=== PATIENT | male | born 1960 | race Hispanic/Latino ===

== ENCOUNTER 2020-06-07 10:47 | Inpatient (IN) | payer OTHER ==
[2020-06-07] MEDS ORDERED: IPRATROPIUM 0.02% NEBU 2.5 ML IH ONE (11:05)
[2020-06-07] MEDS ORDERED: MAGNESIUM SULFATE 2 GM/50 ML BAG IV ONE (11:05)
[2020-06-07] MEDS ORDERED: ALBUTEROL 2.5 MG/3 ML NEBU IH ONE (11:05)
--- NOTE | 2020-06-07 11:42 | XRay Report ---
CHEST 1 VIEW 06/07/2020 10:29 AM INDICATION / CLINICAL INFORMATION: sob. COMPARISON: None available. FINDINGS: SUPPORT DEVICES: None. HEART / MEDIASTINUM: No significant abnormality. LUNGS / PLEURA: Streaky airspace disease right lung and left lower lung field characteristic for pneu monia. No pneumothorax. ADDITIONAL FINDINGS: Multiple old healed right rib fracture deformities. IMPRESSION: 1. Bilateral pneumonia Signer Name: Luis Enrique Rizzo MD Signed: 06/07/2020 11:38 AM Workstation Name: [id number]
[2020-06-07 11:50] LABS: Hematocrit 41.6 % (35.5-45.6); Hemoglobin 14.1 gm/dl (11.8-15.2); Mean Corpuscular HGB Conc 34 % (32-34); Mean Corpuscular Volume 89 fl (84-94); Platelet Count 202 K/mm3 (140-440); Red Blood Count 4.65 M/mm3 (3.65-5.03); Red Cell Distribution Width 15.2 % (13.2-15.2)
--- NOTE | 2020-06-07 12:05 | Emergency Department Report ---
ED Shortness of Breath HPI - General Chief Complaint: Dyspnea/Respdistress Stated Complaint: HALIMA Time Seen by Provider: 06/07/20 11:03 Source: patient, EMS Mode of arrival: Stretcher Limitations: No Limitations - History of Present Illness Initial Comments: 59-year-old male with a past medical history of lung cancer, COPD on 4 L of home oxygen, diabetes, hypertension, and leg edema presents to the hospital with complaints of shortness breath x1 day. EMS states patient saturation was 91% on 4 L upon their arrival to the house. Patient has significant wheezing. CPAP was initiated route with albuterol 5 mg, Solu-Medrol 125 mg, and Atrovent 0.5 mg. Patient denies a cough and shortness with x1 day. No fevers reported. Denies previous intubations. Patient presents to the hospital with continued dyspnea and wheezing and was transferred to [facility] upon arrival. - Related Data Previous Rx's Medication Instructions Recorded Last Taken Type Clindamycin [Clindamycin CAP] 300 mg PO Q8H 10 Days cap 02/04/15 Unknown Rx Metformin HCl [Glucophage] 1,000 mg PO BID #180 tablet 02/04/15 Unknown Rx [place]-3 Fatty Acids/Fish Oil [Fish 1 each PO TID #90 capsule 02/04/15 Unknown Rx Oil 1,000 mg Softgel] Pravastatin [Pravachol] 40 mg PO QHS #90 tablet 02/04/15 Unknown Rx Sulfamethoxazole/Trimethoprim 1 each PO Q12HR 10 Days tablet 02/04/15 Unknown Rx [Bactrim DS TAB] HYDROcodone/APAP 5-325 [[place] 1 each PO Q6HR PRN #24 tablet 10/22/16 Unknown Rx 5/325] Ibuprofen [Motrin 800 MG tab] 800 mg PO Q8HR PRN #40 tablet 10/22/16 Unknown Rx Allergies Allergy/AdvReac Type Severity Reaction Status Date / Time No Known Allergies Allergy Verified 01/29/15 21:43 ED Review of Systems ROS: Stated complaint: HALIMA Other details as noted in HPI Comment: All other systems reviewed and negative ED Past Medical Hx - Past Medical History Hx Hypertension: Yes Hx Congestive Heart Failure: No Hx Diabetes: Yes Hx of Cancer: Yes (Lung CA) Hx Asthma: No Hx COPD: Yes (4L) Additional medical history: no primary care - Surgical History Past Surgical History?: No - Social History Smoking Status: Current Every Day Smoker Substance Use Type: None - Medications Home Medications: Home Medications Medication Instructions Recorded Confirmed Last Taken Type Clindamycin [Clindamycin CAP] 300 mg PO Q8H 10 Days cap 02/04/15 Unknown Rx Metformin HCl [Glucophage] 1,000 mg PO BID #180 tablet 02/04/15 Unknown Rx [place]-3 Fatty Acids/Fish Oil [Fish 1 each PO TID #90 capsule 02/04/15 Unknown Rx Oil 1,000 mg Softgel] Pravastatin [Pravachol] 40 mg PO QHS #90 tablet 02/04/15 Unknown Rx Sulfamethoxazole/Trimethoprim 1 each PO Q12HR 10 Days tablet 02/04/15 Unknown Rx [Bactrim DS TAB] HYDROcodone/APAP 5-325 [[place] 1 each PO Q6HR PRN #24 tablet 10/22/16 Unknown Rx 5/325] Ibuprofen [Motrin 800 MG tab] 800 mg PO Q8HR PRN #40 tablet 10/22/16 Unknown Rx ED Physical Exam - General Limitations: No Limitations - Other Other exam information: General: Moderate respiratory distress Head: Atraumatic Eyes: normal appearance ENT: Moist mucous membranes Neck: Normal appearance, no midline tenderness Chest: Tachypnea, excessive muscle use, bilateral wheezing fair air move CV: Tachycardic regular rhythm Abdomen: Soft, normal bowel sounds, nontender, nondistended, no rebound or guarding Back: Normal inspection Extremity: Bilateral lower extremity edema with chronic leg wounds/skin change Neuro: Alert O x 3, no facial asymmetry, speech clear, no gross motor sensory deficit Psych: Appropriate behavior Skin: Chronic skin changes noted to bilateral lower extremity sounds ED Course Vital Signs 06/07/20 06/07/20 06/07/20 10:59 11:08 11:14 Temperature 97.8 F Pulse Rate 124 H 120 H Pulse Rate [ Bilateral Throughout] Respiratory 34 H 26 H Rate Respiratory Rate [Bilateral Throughout] Blood Pressure 140/78 O2 Sat by Pulse 99 100 Oximetry 06/07/20 06/07/20 06/07/20 11:16 11:47 13:08 Temperature Pulse Rate 118 H Pulse Rate [ 110 H Bilateral Throughout] Respiratory 31 H Rate Respiratory 24 Rate [Bilateral Throughout] Blood Pressure 115/64 O2 Sat by Pulse 99 100 Oximetry ED Medical Decision Making - Lab Data Result diagrams: 06/07/20 11:15 06/07/20 12:40 Lab Results 06/07/20 06/07/20 06/07/20 Range/Units 11:15 11:15 11:15 WBC 10.8 (4.5-11.0) K/mm3 RBC 4.65 (3.65-5.03) M/mm3 Hgb 14.1 (11.8-15.2) gm/dl Hct 41.6 (35.5-45.6) % MCV 89 (84-94) fl MCH 30 (28-32) pg MCHC 34 (32-34) % RDW 15.2 (13.2-15.2) % Plt Count 202 (140-440) K/mm3 Add Manual Diff Complete Total Counted 100 Seg Neutrophils % [employer] Programmer Seg Neuts % (Manual) 97.0 H (40.0-70.0) % Band Neutrophils % 0 % Lymphocytes % (Manual) 2.0 L (13.4-35.0) % Reactive Lymphs % (Man) 0 % Monocytes % (Manual) 0 (0.0-7.3) % Eosinophils % (Manual) 0 (0.0-4.3) % Basophils % (Manual) 0 (0.0-1.8) % Metamyelocytes % 1.0 % Myelocytes % 0 % Promyelocytes % 0 % Blast Cells % 0 % Nucleated RBC % Not Reportable Seg Neutrophils # Man 10.5 H (1.8-7.7) K/mm3 Band Neutrophils # 0.0 K/mm3 Lymphocytes # (Manual) 0.2 L (1.2-5.4) K/mm3 Abs React Lymphs (Man) 0.0 K/mm3 Monocytes # (Manual) 0.0 (0.0-0.8) K/mm3 Eosinophils # (Manual) 0.0 (0.0-0.4) K/mm3 Basophils # (Manual) 0.0 (0.0-0.1) K/mm3 Metamyelocytes # 0.1 K/mm3 Myelocytes # 0.0 K/mm3 Promyelocytes # 0.0 K/mm3 Blast Cells # 0.0 K/mm3 WBC Morphology Not Reportable Hypersegmented Neuts Not Reportable Hyposegmented Neuts Not Reportable Hypogranular Neuts Not Reportable Smudge Cells Not Reportable Toxic Granulation Not Reportable Toxic Vacuolation Not Reportable Dohle Bodies Not Reportable Pelger-Huet Anomaly Not Reportable Cristy Rods Not Reportable Platelet Estimate Consistent w auto Clumped Platelets Not Reportable Plt Clumps, EDTA Not Reportable Large Platelets Not Reportable Giant Platelets Not Reportable Platelet Satelliting Not Reportable Plt Morphology Comment Not Reportable RBC Morphology Normal Dimorphic RBCs Not Reportable Polychromasia Not Reportable Hypochromasia Not Reportable Poikilocytosis Not Reportable Anisocytosis Not Reportable Microcytosis Not Reportable Macrocytosis Not Reportable Spherocytes Not Reportable Pappenheimer Bodies Not Reportable Sickle Cells Not Reportable Target Cells Not Reportable Tear Drop Cells Not Reportable Ovalocytes Not Reportable Helmet Cells Not Reportable [place] Bodies Not Reportable Wilson Rings Not Reportable [place] Cells Not Reportable Bite Cells Not Reportable Crenated Cell Not Reportable Elliptocytes Not Reportable Acanthocytes (Spur) Not Reportable Rouleaux Not Reportable Hemoglobin C Crystals Not Reportable Schistocytes Not Reportable Malaria parasites Not Reportable Lizandro Bodies Not Reportable Hem Pathologist Commnt No PT 13.4 (12.2-14.9) Sec. INR 1.00 (0.87-1.13) D-Dimer (0-234) ng/mlDDU ABG pH (7.320-7.450) POC ABG pCO2 (32.0-48.0) mmHg POC ABG pO2 (83-108) mmHg POC ABG HCO3 POC ABG Base Excess ABG Hemoglobin (12.0-17.5) ABG Sodium (136.0-145.0) mmol/L ABG Potassium (3.40-4.50) mmol/L ABG Chloride (98-107) mmol/L ABG Glucose (65-95) mg/dL FiO2 Sodium 137 (137-145) mmol/L Potassium 4.2 (3.6-5.0) mmol/L Chloride 100.2 (98-107) mmol/L Carbon Dioxide 27 (22-30) mmol/L Anion Gap 14 mmol/L BUN 17 (9-20) mg/dL Creatinine 0.4 L (0.8-1.3) mg/dL Estimated GFR > 60 ml/min BUN/Creatinine Ratio 43 % Glucose 160 H (75-100) mg/dL Calcium 9.5 (8.4-10.2) mg/dL Ferritin (30.0-300.0) ng/mL Total Bilirubin 0.50 (0.1-1.2) mg/dL AST 14 (5-40) units/L ALT 50 (7-56) units/L Alkaline Phosphatase 86 (35-129) units/L Lactate Dehydrogenase (91-180) units/L Troponin T < 0.010 (0.00-0.029) ng/mL C-Reactive Protein (0.00-1.30) mg/dL NT-Pro-B Natriuret Pep 296.7 (0-900) pg/mL Total Protein 6.1 L (6.3-8.2) g/dL Albumin 3.0 L (3.9-5) g/dL Albumin/Globulin Ratio 1.0 % Procalcitonin (<0.15) ng/mL Arterial Blood Glucose (65-95) mg/dL Arterial Blood Ionized Calcium (4.6-5.3) mg/dL 06/07/20 06/07/20 06/07/20 Range/Units 11:15 11:35 12:40 WBC (4.5-11.0) K/mm3 RBC (3.65-5.03) M/mm3 Hgb (11.8-15.2) gm/dl Hct (35.5-45.6) % MCV (84-94) fl MCH (28-32) pg MCHC (32-34) % RDW (13.2-15.2) % Plt Count (140-440) K/mm3 Add Manual Diff Total Counted Seg Neutrophils % Seg Neuts % (Manual) (40.0-70.0) % Band Neutrophils % % Lymphocytes % (Manual) (13.4-35.0) % Reactive Lymphs % (Man) % Monocytes % (Manual) (0.0-7.3) % Eosinophils % (Manual) (0.0-4.3) % Basophils % (Manual) (0.0-1.8) % Metamyelocytes % % Myelocytes % % Promyelocytes % % Blast Cells % % Nucleated RBC % Seg Neutrophils # Man (1.8-7.7) K/mm3 Band Neutrophils # K/mm3 Lymphocytes # (Manual) (1.2-5.4) K/mm3 Abs React Lymphs (Man) K/mm3 Monocytes # (Manual) (0.0-0.8) K/mm3 Eosinophils # (Manual) (0.0-0.4) K/mm3 Basophils # (Manual) (0.0-0.1) K/mm3 Metamyelocytes # K/mm3 Myelocytes # K/mm3 Promyelocytes # K/mm3 Blast Cells # K/mm3 WBC Morphology TNR Hypersegmented Neuts Hyposegmented Neuts Hypogranular Neuts Smudge Cells Toxic Granulation Toxic Vacuolation Dohle Bodies Pelger-Huet Anomaly Cristy Rods Platelet Estimate Clumped Platelets Plt Clumps, EDTA Large Platelets Giant Platelets Platelet Satelliting Plt Morphology Comment RBC Morphology Dimorphic RBCs Polychromasia Hypochromasia Poikilocytosis Anisocytosis Microcytosis Macrocytosis Spherocytes Pappenheimer Bodies Sickle Cells Target Cells Tear Drop Cells Ovalocytes Helmet Cells [place] Bodies Wilson Rings Layo Cells Bite Cells Crenated Cell Elliptocytes Acanthocytes (Spur) Rouleaux Hemoglobin C Crystals Schistocytes Malaria parasites Lizandro Bodies Hem Pathologist Commnt PT (12.2-14.9) Sec. INR (0.87-1.13) D-Dimer 149.46 (0-234) ng/mlDDU ABG pH 7.395 (7.320-7.450) POC ABG pCO2 46.8 (32.0-48.0) mmHg POC ABG pO2 220.9 H (83-108) mmHg POC ABG HCO3 28.0 POC ABG Base Excess 2.5 ABG Hemoglobin 14.2 (12.0-17.5) ABG Sodium 136.6 (136.0-145.0) mmol/L ABG Potassium 4.0 (3.40-4.50) mmol/L ABG Chloride 100.0 (98-107) mmol/L ABG Glucose 179 H (65-95) mg/dL FiO2 30.0 Sodium (137-145) mmol/L Potassium (3.6-5.0) mmol/L Chloride (98-107) mmol/L Carbon Dioxide (22-30) mmol/L Anion Gap mmol/L BUN (9-20) mg/dL Creatinine (0.8-1.3) mg/dL Estimated GFR ml/min BUN/Creatinine Ratio % Glucose (75-100) mg/dL Calcium (8.4-10.2) mg/dL Ferritin (30.0-300.0) ng/mL Total Bilirubin (0.1-1.2) mg/dL AST (5-40) units/L ALT (7-56) units/L Alkaline Phosphatase (35-129) units/L Lactate Dehydrogenase (91-180) units/L Troponin T (0.00-0.029) ng/mL C-Reactive Protein (0.00-1.30) mg/dL NT-Pro-B Natriuret Pep (0-900) pg/mL Total Protein (6.3-8.2) g/dL Albumin (3.9-5) g/dL Albumin/Globulin Ratio % Procalcitonin (<0.15) ng/mL Arterial Blood Glucose 179 H (65-95) mg/dL Arterial Blood Ionized Calcium 4.9 (4.6-5.3) mg/dL 06/07/20 06/07/20 06/07/20 Range/Units 12:40 12:40 12:40 WBC (4.5-11.0) K/mm3 RBC (3.65-5.03) M/mm3 Hgb (11.8-15.2) gm/dl Hct (35.5-45.6) % MCV (84-94) fl MCH (28-32) pg MCHC (32-34) % RDW (13.2-15.2) % Plt Count (140-440) K/mm3 Add Manual Diff Total Counted Seg Neutrophils % Seg Neuts % (Manual) (40.0-70.0) % Band Neutrophils % % Lymphocytes % (Manual) (13.4-35.0) % Reactive Lymphs % (Man) % Monocytes % (Manual) (0.0-7.3) % Eosinophils % (Manual) (0.0-4.3) % Basophils % (Manual) (0.0-1.8) % Metamyelocytes % % Myelocytes % % Promyelocytes % % Blast Cells % % Nucleated RBC % Seg Neutrophils # Man (1.8-7.7) K/mm3 Band Neutrophils # K/mm3 Lymphocytes # (Manual) (1.2-5.4) K/mm3 Abs React Lymphs (Man) K/mm3 Monocytes # (Manual) (0.0-0.8) K/mm3 Eosinophils # (Manual) (0.0-0.4) K/mm3 Basophils # (Manual) (0.0-0.1) K/mm3 Metamyelocytes # K/mm3 Myelocytes # K/mm3 Promyelocytes # K/mm3 Blast Cells # K/mm3 WBC Morphology Hypersegmented Neuts Hyposegmented Neuts Hypogranular Neuts Smudge Cells Toxic Granulation Toxic Vacuolation Dohle Bodies Pelger-Huet Anomaly Cristy Rods Platelet Estimate Clumped Platelets Plt Clumps, EDTA Large Platelets Giant Platelets Platelet Satelliting Plt Morphology Comment RBC Morphology Dimorphic RBCs Polychromasia Hypochromasia Poikilocytosis Anisocytosis Microcytosis Macrocytosis Spherocytes Pappenheimer Bodies Sickle Cells Target Cells Tear Drop Cells Ovalocytes Helmet Cells [place] Bodies Wilson Rings Layo Cells Bite Cells Crenated Cell Elliptocytes Acanthocytes (Spur) Rouleaux Hemoglobin C Crystals Schistocytes Malaria parasites Lizandro Bodies Hem Pathologist Commnt PT (12.2-14.9) Sec. INR (0.87-1.13) D-Dimer (0-234) ng/mlDDU ABG pH (7.320-7.450) POC ABG pCO2 (32.0-48.0) mmHg POC ABG pO2 (83-108) mmHg POC ABG HCO3 POC ABG Base Excess ABG Hemoglobin (12.0-17.5) ABG Sodium (136.0-145.0) mmol/L ABG Potassium (3.40-4.50) mmol/L ABG Chloride (98-107) mmol/L ABG Glucose (65-95) mg/dL FiO2 Sodium (137-145) mmol/L Potassium (3.6-5.0) mmol/L Chloride (98-107) mmol/L Carbon Dioxide (22-30) mmol/L Anion Gap mmol/L BUN (9-20) mg/dL Creatinine (0.8-1.3) mg/dL Estimated GFR ml/min BUN/Creatinine Ratio % Glucose 202 H (75-100) mg/dL Calcium (8.4-10.2) mg/dL Ferritin 1675.0 H (30.0-300.0) ng/mL Total Bilirubin (0.1-1.2) mg/dL AST (5-40) units/L ALT (7-56) units/L Alkaline Phosphatase (35-129) units/L Lactate Dehydrogenase 300 H (91-180) units/L Troponin T (0.00-0.029) ng/mL C-Reactive Protein 5.60 H (0.00-1.30) mg/dL NT-Pro-B Natriuret Pep (0-900) pg/mL Total Protein (6.3-8.2) g/dL Albumin (3.9-5) g/dL Albumin/Globulin Ratio % Procalcitonin 0.40 (<0.15) ng/mL Arterial Blood Glucose (65-95) mg/dL Arterial Blood Ionized Calcium (4.6-5.3) mg/dL - EKG Data -: EKG Interpreted by Me EKG shows normal: sinus rhythm, ST-T waves (No STEMI, right bundle branch block) Rate: tachycardia (118) - Radiology Data Radiology results: report reviewed CHEST 1 VIEW 06/07/2020 10:29 AM INDICATION / CLINICAL INFORMATION: sob. COMPARISON: None available. FINDINGS: SUPPORT DEVICES: None. HEART / MEDIASTINUM: No significant abnormality. LUNGS / PLEURA: Streaky airspace disease right lung and left lower lung field characteristic for pneumonia. No pneumothorax. ADDITIONAL FINDINGS: Multiple old healed right rib fracture deformities. IMPRESSION: 1. Bilateral pneumonia - Medical Decision Making Patient presents to the hospital shortness breath x1 day and COPD extubation requiring BiPAP support. Patient treated in the ED with addition of bronchodilators and IV magnesium. Solu-Medrol provided in route to the [facility]. X-ray reveals bilateral pneumonia. Patient treated with Rocephin and azithromycin for community-acquired pneumonia, placed in respiratory isolation and COVID order set and blood cultures ordered. Dexamethasone 6 mg IV given. Initial ABG does not reveal significant CO2 retention and O2 sat was titrated down by respiratory therapist. ID consult ordered as well. ddimer negative Critical Care Time: Yes Critical care time in (mins) excluding proc time.: 35 Critical care attestation.: If time is entered above; I have spent that time in minutes in the direct care of this critically ill patient, excluding procedure time. ED Disposition Clinical Impression: Bilateral pneumonia, History of lung cancer, COPD exacerbation, On home oxygen therapy Disposition: OP ADMIT IP TO THIS HOSP Is pt being admited?: Yes Condition: Stable Time of Disposition: 12:16
[2020-06-07 12:18] LABS: Alanine Aminotransferase 50 units/L (7-56); BUN/Creatinine Ratio 43; Blood Urea Nitrogen 17 mg/dL (9-20); Calcium 9.5 mg/dL (8.4-10.2); Hemolysis Index 11
[2020-06-07] MEDS ORDERED: dexAMETHasone 4 MG/ML VIAL IV ONE (12:29)
[2020-06-07 12:40] LABS: Basophils % (Manual) 0 % (0.0-1.8); Eosinophils % (Manual) 0 % (0.0-4.3); Monocytes % (Manual) 0 % (0.0-7.3); Total Cells Counted 100
--- NOTE | 2020-06-07 12:40 | History and Physical Report ---
History of Present Illness Chief complaint: I am having a hard time breathing History of present illness: 59 YO Male with Lung Cancer, Chronic Respiratory Failure on 4L Home Oxygen via [place], DM, HTN, Obesity,HLD, Nicotine Dependence presents to ED for evaluation. Patient is short of breath and is currently on noninvasive positive pressure ventilation at the time of my evaluation and is unable to give detailed history due to shortness of breath. Patient uses head-nodding to her knowledge symptoms. Patient reports that he had experienced shortness of breath over the past 1 day with persistent symptoms over the same timeframe. EMS notified and upon arrival the patient was found to be in distress and subsequently transported to [facility] for further care and evaluation of the aforementioned symptoms. Patient seen and evaluated in the emergency department. Lab and imaging studies reviewed. Chest x-ray reveals evidence of bilateral pneumonia. Patient found to have a pulse oximetry of 86% on room air which is consistent with acute hypoxemic respiratory failure. Patient subsequently placed on noninvasive positive pressure ventilation with mild improvement in symptoms. Patient initiated on coronavirus protocol in the emergency department prior to my evaluation. Patient admitted to [facility] due to increased risk of pulmonary decompensation. No reports of fever, chills, chest pain, productive cough, recent ill contacts, or known exposure to COVID-19. All medication listed at time of admission has been reconciled. Patient is sitting up in bed, using accessory muscles to breathe, tripoding. Patient is able to protect his airway at this time. Past History Past Medical History: cancer, diabetes, hypertension, hyperlipidemia Past Surgical History: No surgical history, Other (Reviewed) Social history: single, smoking Medications and Allergies Allergies Allergy/AdvReac Type Severity Reaction Status Date / Time No Known Allergies Allergy Verified 01/29/15 21:43 Home Medications Medication Instructions Recorded Confirmed Last Taken Type Clindamycin [Clindamycin CAP] 300 mg PO Q8H 10 Days cap 02/04/15 Unknown Rx Metformin HCl [Glucophage] 1,000 mg PO BID #180 tablet 02/04/15 Unknown Rx [place]-3 Fatty Acids/Fish Oil [Fish 1 each PO TID #90 capsule 02/04/15 Unknown Rx Oil 1,000 mg Softgel] Pravastatin [Pravachol] 40 mg PO QHS #90 tablet 02/04/15 Unknown Rx Sulfamethoxazole/Trimethoprim 1 each PO Q12HR 10 Days tablet 06/03/15 Unknown Rx [Bactrim DS TAB] HYDROcodone/APAP 5-325 [[place] 1 each PO Q6HR PRN #24 tablet 10/22/16 Unknown Rx 5/325] Ibuprofen [Motrin 800 MG tab] 800 mg PO Q8HR PRN #40 tablet 10/22/16 Unknown Rx Active Meds: Active Medications Ceftriaxone Sodium (Rocephin/Ns 2 Gm/100 Ml) 2 gm in 100 mls @ 200 mls/hr IV Q24HR LARRY; Protocol Azithromycin 500 mg/ Sodium (Chloride) 250 mls @ 250 mls/hr IV Q24HR LARRY; Protocol Review of Systems Constitutional: no weight loss, no weight gain, no fever, no chills Ears, nose, mouth and throat: no ear pain, no ear discharge, no tinnitis, no decreased hearing, no nose pain Cardiovascular: no chest pain, no orthopnea, no palpitations, no rapid/irregular heart beat Respiratory: cough, shortness of breath, no wheezing Gastrointestinal: no nausea, no vomiting, no diarrhea, no constipation Genitourinary Male: no hematuria, no flank pain, no discharge, no urinary frequency, no urinary hesitancy Rectal: no pain, no bleeding Musculoskeletal: no neck pain, no shooting arm pain, no low back pain, no shooting leg pain, no leg numbness/tingling Integumentary: no rash, no pruritis, no redness, no sores, no wounds Neurological: no transient paralysis, no paralysis, no weakness, no parathesias, no numbness, no seizures Psychiatric: no anxiety, no change in sleep habits, no sleep disturbances, no hypersomnia, no change in libido, no disorientation Endocrine: no cold intolerance, no heat intolerance, no polydipsia, no nocturia Hematologic/Lymphatic: no easy bruising, no easy bleeding Allergic/Immunologic: no urticaria, no allergic rhinitis Exam - Constitutional Vitals: Temp Pulse Resp BP Pulse Ox 97.8 F 118 H 31 H 115/64 100 06/07/20 11:08 06/07/20 11:47 06/07/20 11:47 06/07/20 11:47 06/07/20 11:47 General appearance: Present: mild distress - EENT Eyes: Present: PERRL ENT: hearing intact, clear oral mucosa - Neck Neck: Present: supple, normal ROM - Respiratory Respiratory effort: labored, accessory muscle use, stridor Respiratory: bilateral: diminished, rhonchi - Cardiovascular Heart Sounds: Present: S1 & S2. Absent: rub, click - Extremities Extremities: pulses symmetrical, No edema Peripheral Pulses: within normal limits - Abdominal General gastrointestinal: Present: soft, non-tender, non-distended, normal bowel sounds Male genitourinary: Present: normal - Integumentary Integumentary: Present: clear, warm, dry - Musculoskeletal Musculoskeletal: gait normal, strength equal bilaterally - Psychiatric Psychiatric: appropriate mood/affect, intact judgment & insight - Neurologic Neurologic: CNII-XII intact, moves all extremities HEART Score - HEART Score Troponin: Troponin T < 0.010 ng/mL (0.00-0.029) 06/07/20 11:15 Results - Labs CBC & Chem 7: 06/07/20 11:15 06/07/20 12:40 Labs: Abnormal lab results 06/07/20 06/07/20 Range/Units 11:15 11:35 POC ABG pO2 220.9 H (83-108) mmHg ABG Glucose 179 H (65-95) mg/dL Creatinine 0.4 L (0.8-1.3) mg/dL Glucose 160 H (75-100) mg/dL Total Protein 6.1 L (6.3-8.2) g/dL Albumin 3.0 L (3.9-5) g/dL Arterial Blood Glucose 179 H (65-95) mg/dL Assessment and Plan - Patient Problems (1) Acute hypoxemic respiratory failure Current Visit: Yes Status: Acute Plan to address problem: Supplemental oxygen, pulse oximetry, chest x-ray, CT chest, nebulizer therapy, noninvasive positive pressure ventilation as clinically indicated, (2) Lung cancer Current Visit: Yes Status: Acute Qualifiers: Lung location: unspecified part of lung Plan to address problem: Supportive care, supplemental oxygen, CT scan of the chest, outpatient oncology follow-up. (3) Suspected 2019-nCoV infection Current Visit: Yes Status: Acute Plan to address problem: Coronavirus protocol: Coronavirus PCR ordered and is pending at the time of admission, isolation precaution, contact precautions, supplemental oxygen, noninvasive positive pressure ventilation as clinically indicated, prone positioning while in bed as tolerated. (4) Bilateral pneumonia Current Visit: Yes Status: Acute Plan to address problem: Pneumonia protocol: CBC, BMP, chest x-ray, IV antibiotic therapy, nebulizer therapy, noninvasive positive pressure ventilation as clinically indicated, blood culture. (5) Hypertension Current Visit: Yes Status: Acute Qualifiers: Hypertension type: essential hypertension Qualified Code(s): I10 - Essential (primary) hypertension Plan to address problem: Monitor blood pressure every shift, continue medical management. (6) Diabetes Current Visit: Yes Status: Acute Plan to address problem: Consistent carbohydrate diet, Accu-Chek, sliding scale insulin therapy, hypoglycemia protocol (7) Nicotine dependence Current Visit: Yes Status: Acute Qualifiers: Nicotine product type: cigarettes Substance use status: in withdrawal Qualified Code(s): F17.213 - Nicotine dependence, cigarettes, with withdrawal Plan to address problem: Supportive care, smoking cessation counseling, behavior change counseling, +15 minutes. (8) DVT prophylaxis Current Visit: Yes Status: Acute Plan to address problem: SCD to bilateral lower extremities while in bed, prophylactic anticoagulation (9) Advance care planning Current Visit: Yes Status: Acute Plan to address problem: Disease education conducted, patient is full code, prognosis discussed, patient knowledges understanding and agreement with care plan, +30 minutes
[2020-06-07 12:41] LABS: Platelet Estimate Consistent w Auto; RBC Morphology Normal
[2020-06-07 13:48] LABS: C-Reactive Protein 5.6 mg/dL (0.00-1.30)
[2020-06-07] MEDS ORDERED: cefTRIAXone/NS 2 GM/100 ML 2 GM/100 ML BAG IV ONE (13:57)
[2020-06-07] MEDS ORDERED: dexAMETHasone 4 MG/ML VIAL ONE (13:57)
[2020-06-07] MEDS: cefTRIAXone/NS 2 GM/100 ML 2 GM/100 ML BAG IV SCH (14:31)
[2020-06-07] MEDS: AZITHROMYCIN 500 MG in SODIUM CHLORIDE 0.9% 250ML 250 ML IV SCH (14:40)
--- NOTE | 2020-06-07 16:21 | Cat Scan Report ---
. CTA CHEST WITH IV CONTRAST INDICATION: Shortness of breath. History of lung cancer TECHNIQUE: Axial CT images were obtained through the chest after injection of 100 cc IV contrast. 3 plane MIP re constructions were produced. All CT scans at this location are performed using CT dose reduction for ALARA by means of automated exposure control. COMPARISON: None available. FINDINGS: Exam limited secondary to moderate respiratory motion artifact. PULMONARY ARTERIES: No pulmonary emboli. THORACIC AORTA: No acute abnormality. HEART: Normal. CORONARY ARTERIES: No significant calcification. PLEURA: No pleural effusion. No pneumothorax. LYMPH NODES: Bulky right upper and lower paratracheal subcarinal lymph nodes. The subcarinal node gabriel sures 3.7 cm in AP diameter image 56. There is soft tissue encasement of the right mainstem bronchus. LUNGS: Cavitary right perihilar mass/bronchiectasis with thick gilmore measures 6.4 x 6.4 cm image 43. Multiple small cavitary nodules throughout right upper lobe with 1 measuring 1.3 cm on image 21. Smal l 6 mm left upper lobe pulmonary nodule image 21. Several small subsolid right lower lobe and tiny le ft lower lobe nodular parenchymal densities. Additional small cavitary lesion right middle lobe. ADDITIONAL FINDINGS: None. UPPER ABDOMEN: Hypodense 1.7 cm right adrenal nodule with a CT density of 3 is diagnostic for benign adenoma. SKELETAL STRUCTURES: No significant osseous abnormality. IMPRESSION: 1. Large soft tissue mass encasing right mainstem bronchus with associated bronchiectasis and central 6.4 cm cavitary lesion within right upper lobe. 2. Extensive mediastinal adenopathy 3. Multiple cavitary nodules and bilateral lower lobe nodular likely infectious/inflammatory parenchy mal disease could represent superimposed TB. Respiratory precautions recommended. 4. No CT evidence for pulmonary embolus Signer Name: Luis Enrique Rizzo MD Signed: 06/07/2020 4:17 PM Workstation Name: [id number]
[2020-06-07] MEDS: ONDANSETRON 4 MG/2 ML INJ IV PRN (16:30)
[2020-06-07] MEDS ORDERED: ONDANSETRON 4 MG/2 ML INJ ONE (16:48)
[2020-06-07] MEDS ORDERED: LORazepam 2 MG/ML VIAL IV PRN (17:01)
[2020-06-08] MEDS ORDERED: HYDROcodone/ACETAMINOPHEN 5-325 MG TAB PO PRN (08:15)
[2020-06-08] MEDS ORDERED: ALBUTEROL 2.5 MG/3 ML NEBU IH PRN (08:19)
[2020-06-08] MEDS ORDERED: MORPHINE 2 MG/1 ML INJ IV PRN (08:20)
[2020-06-08] MEDS ORDERED: DEXTROSE 50% IN WATER (25GM) 50 ML SYRINGE IV PRN (08:20)
[2020-06-08] MEDS ORDERED: ACETAMINOPHEN 325 MG TAB PO PRN (08:20)
[2020-06-08] MEDS ORDERED: NALOXONE 0.4 MG/1 ML INJ IV PRN (08:20)
[2020-06-08] MEDS: IPRATROPIUM/ALBUTEROL SULFATE 3 ML AMPUL.NEB IH SCH ×3 (08:36→20:24)
[2020-06-08] MEDS: AZITHROMYCIN 500 MG in SODIUM CHLORIDE 0.9% 250ML 250 ML IV SCH (09:40)
[2020-06-08] MEDS: cefTRIAXone/NS 2 GM/100 ML 2 GM/100 ML BAG IV SCH (09:40)
[2020-06-08] MEDS: DOCUSATE SODIUM 100 MG CAP PO SCH ×2 (09:41→21:53)
[2020-06-08] MEDS: methylPREDNISolone Sod Succinate 125 MG/2 ML INJ IV SCH ×3 (09:41→21:53)
--- NOTE | 2020-06-08 10:26 | Progress Note ---
Assessment and Plan Assessment and plan: 59 YO Male with Lung Cancer, Chronic Respiratory Failure on 4L Home Oxygen via [place], DM, HTN, Obesity,HLD, Nicotine Dependence presents to ED for evaluation. Patient is short of breath and is currently on noninvasive positive pressure ventilation at the time of my evaluation and is unable to give detailed history due to shortness of breath. Patient uses head-nodding to her knowledge symptoms. Patient reports that he had experienced shortness of breath over the past 1 day with persistent symptoms over the same timeframe. EMS notified and upon arrival the patient was found to be in distress and subsequently transported to [facility] for further care and evaluation of the aforementioned symptoms. Patient seen and evaluated in the emergency department. Lab and imaging studies reviewed. Chest x-ray reveals evidence of bilateral pneumonia. Patient found to have a pulse oximetry of 86% on room air which is consistent with acute hypoxemic respiratory failure. Patient subsequently placed on noninvasive positive pressure ventilation with mild improvement in symptoms. Patient initiated on coronavirus protocol in the emergency department prior to my evaluation. Patient admitted to [facility] due to increased risk of pulmonary decompensation. No reports of fever, chills, chest pain, productive cough, recent ill contacts, or known exposure to COVID-19. All medication listed at time of admission has been reconciled. Patient is sitting up in bed, using accessory muscles to breathe, tripoding. Patient is able to protect his airway at this time. CT CHEST: IMPRESSION: 1. Large soft tissue mass encasing right mainstem bronchus with associated bronchiectasis and central 6.4 cm cavitary lesion within right upper lobe. 2. Extensive mediastinal adenopathy 3. Multiple cavitary nodules and bilateral lower lobe nodular likely infectious/inflammatory parenchymal disease could represent superimposed TB. Respiratory precautions recommended. 4. No CT evidence for pulmonary embolus Discussed importance of compliance with the patient, he verbalized understanding (1) Acute hypoxemic respiratory failure Current Visit: Yes Status: Acute Plan to address problem: Supplemental oxygen, pulse oximetry, chest x-ray, CT chest, nebulizer therapy, noninvasive positive pressure ventilation as clinically indicated, Pulmonary consulted Start on steroids Wean oxygen as tolerated Downgrade to medsurge as pulmonary symptoms improves (2) Lung cancer Current Visit: Yes Status: Acute Qualifiers: Lung location: unspecified part of lung Plan to address problem: Supportive care, supplemental oxygen, CT scan of the chest, outpatient oncology follow-up. Currently on Chemotherapy per patient (3) Suspected 2019-nCoV infection Current Visit: Yes Status: Acute Plan to address problem: Coronavirus protocol: Coronavirus PCR ordered and is pending at the time of admission, isolation precaution, contact precautions, supplemental oxygen, noninvasive positive pressure ventilation as clinically indicated, prone positioning while in bed as tolerated. (4) Bilateral pneumonia Current Visit: Yes Status: Acute Plan to address problem: Pneumonia protocol: CBC, BMP, chest x-ray, IV antibiotic therapy, nebulizer therapy, noninvasive positive pressure ventilation as clinically indicated, blood culture. (5) Hypertension Current Visit: Yes Status: Acute Qualifiers: Hypertension type: essential hypertension Qualified Code(s): I10 - Essential (primary) hypertension Plan to address problem: Monitor blood pressure every shift, continue medical management. (6) Diabetes Current Visit: Yes Status: Acute Plan to address problem: Consistent carbohydrate diet, Accu-Chek, sliding scale insulin therapy, hypoglycemia protocol (7) Nicotine dependence Current Visit: Yes Status: Acute Qualifiers: Nicotine product type: cigarettes Substance use status: in withdrawal Qualified Code(s): F17.213 - Nicotine dependence, cigarettes, with withdrawal Plan to address problem: Supportive care, smoking cessation counseling, behavior change counseling, +15 minutes. (8) DVT prophylaxis Current Visit: Yes Status: Acute Plan to address problem: SCD to bilateral lower extremities while in bed, prophylactic anticoagulation (9) Advance care planning Current Visit: Yes Status: Acute Plan to address problem: Disease education conducted, patient is full code, prognosis discussed, patient knowledges understanding and agreement with care plan, +30 minutes History Interval history: Patient seen and examined, still with shortness of breath, Nursing staff reports that the patient refused treatment overnight. Hospitalist Physical - Physical exam Narrative exam: VITAL SIGNS: Reviewed. GENERAL: The patient appears normally developed, obese, Vital signs as doc umented. HEAD: No signs of head trauma. EYES: Pupils are equal. Extraocular motions intact. EARS: Hearing grossly intact. MOUTH: Oropharynx is normal. NECK: No adenopathy, no JVD. CHEST: Chest with diminished breath sounds bilaterally. No wheezes, rales, or rhonchi. CARDIAC: Regular rate and rhythm. S1 and S2, without murmurs, gallops, or rubs. VASCULAR: No Edema. Peripheral pulses normal and equal in all extremities. ABDOMEN: Soft, non tender and non distended. No rebound or guarding, and no masses palpated. Bowel Sounds normal. MUSCULOSKELETAL: Good range of motion of all major joints. Extremities without clubbing, cyanosis or edema. NEUROLOGIC EXAM: Alert and oriented x 3 No focal sensory or strength deficits. Speech normal. Follows commands. PSYCHIATRIC: Mood normal. SKIN: detail exam as documented in skin assessment - Constitutional Vitals: Temp Pulse Resp BP Pulse Ox 98.2 F 87 16 122/67 96 06/08/20 08:00 06/08/20 07:00 06/08/20 07:00 06/08/20 07:00 06/08/20 07:00 General appearance: Present: mild distress HEART Score - HEART Score Troponin: Troponin T < 0.010 ng/mL (0.00-0.029) 06/07/20 11:15 Results - Labs CBC & Chem 7: 06/07/20 11:15 06/07/20 12:40 Labs: Laboratory Last Values WBC 10.8 K/mm3 (4.5-11.0) 06/07/20 11:15 RBC 4.65 M/mm3 (3.65-5.03) 06/07/20 11:15 Hgb 14.1 gm/dl (11.8-15.2) 06/07/20 11:15 Hct 41.6 % (35.5-45.6) 06/07/20 11:15 MCV 89 fl (84-94) 06/07/20 11:15 MCH 30 pg (28-32) 06/07/20 11:15 MCHC 34 % (32-34) 06/07/20 11:15 RDW 15.2 % (13.2-15.2) 06/07/20 11:15 Plt Count 202 K/mm3 (140-440) 06/07/20 11:15 Add Manual Diff Complete 06/07/20 11:15 Total Counted 100 06/07/20 11:15 Seg Neutrophils % Corporate Auditor 06/07/20 11:15 Seg Neuts % (Manual) 97.0 % (40.0-70.0) H 06/07/20 11:15 Band Neutrophils % 0 % 06/07/20 11:15 Lymphocytes % (Manual) 2.0 % (13.4-35.0) L 06/07/20 11:15 Reactive Lymphs % (Man) 0 % 06/07/20 11:15 Monocytes % (Manual) 0 % (0.0-7.3) 06/07/20 11:15 Eosinophils % (Manual) 0 % (0.0-4.3) 06/07/20 11:15 Basophils % (Manual) 0 % (0.0-1.8) 06/07/20 11:15 Metamyelocytes % 1.0 % 06/07/20 11:15 Myelocytes % 0 % 06/07/20 11:15 Promyelocytes % 0 % 06/07/20 11:15 Blast Cells % 0 % 06/07/20 11:15 Nucleated RBC % Not Reportable 06/07/20 11:15 Seg Neutrophils # Man 10.5 K/mm3 (1.8-7.7) H 06/07/20 11:15 Band Neutrophils # 0.0 K/mm3 06/07/20 11:15 Lymphocytes # (Manual) 0.2 K/mm3 (1.2-5.4) L 06/07/20 11:15 Abs React Lymphs (Man) 0.0 K/mm3 06/07/20 11:15 Monocytes # (Manual) 0.0 K/mm3 (0.0-0.8) 06/07/20 11:15 Eosinophils # (Manual) 0.0 K/mm3 (0.0-0.4) 06/07/20 11:15 Basophils # (Manual) 0.0 K/mm3 (0.0-0.1) 06/07/20 11:15 Metamyelocytes # 0.1 K/mm3 06/07/20 11:15 Myelocytes # 0.0 K/mm3 06/07/20 11:15 Promyelocytes # 0.0 K/mm3 06/07/20 11:15 Blast Cells # 0.0 K/mm3 06/07/20 11:15 WBC Morphology Not Reportable 06/07/20 11:15 WBC Morphology TNR 06/07/20 11:15 Hypersegmented Neuts Not Reportable 06/07/20 11:15 Hyposegmented Neuts Not Reportable 06/07/20 11:15 Hypogranular Neuts Not Reportable 06/07/20 11:15 Smudge Cells Not Reportable 06/07/20 11:15 Toxic Granulation Not Reportable 06/07/20 11:15 Toxic Vacuolation Not Reportable 06/07/20 11:15 Dohle Bodies Not Reportable 06/07/20 11:15 Pelger-Huet Anomaly Not Reportable 06/07/20 11:15 Cristy Rods Not Reportable 06/07/20 11:15 Platelet Estimate Consistent w auto 06/07/20 11:15 Clumped Platelets Not Reportable 06/07/20 11:15 Plt Clumps, EDTA Not Reportable 06/07/20 11:15 Large Platelets Not Reportable 06/07/20 11:15 Giant Platelets Not Reportable 06/07/20 11:15 Platelet Satelliting Not Reportable 06/07/20 11:15 Plt Morphology Comment Not Reportable 06/07/20 11:15 RBC Morphology Normal 06/07/20 11:15 Dimorphic RBCs Not Reportable 06/07/20 11:15 Polychromasia Not Reportable 06/07/20 11:15 Hypochromasia Not Reportable 06/07/20 11:15 Poikilocytosis Not Reportable 06/07/20 11:15 Anisocytosis Not Reportable 06/07/20 11:15 Microcytosis Not Reportable 06/07/20 11:15 Macrocytosis Not Reportable 06/07/20 11:15 Spherocytes Not Reportable 06/07/20 11:15 Pappenheimer Bodies Not Reportable 06/07/20 11:15 Sickle Cells Not Reportable 06/07/20 11:15 Target Cells Not Reportable 06/07/20 11:15 Tear Drop Cells Not Reportable 06/07/20 11:15 Ovalocytes Not Reportable 06/07/20 11:15 Helmet Cells Not Reportable 06/07/20 11:15 [place] Bodies Not Reportable 06/07/20 11:15 [place] Rings Not Reportable 06/07/20 11:15 [place] Cells Not Reportable 06/07/20 11:15 Bite Cells Not Reportable 06/07/20 11:15 Crenated Cell Not Reportable 06/07/20 11:15 Elliptocytes Not Reportable 06/07/20 11:15 Acanthocytes (Spur) Not Reportable 06/07/20 11:15 Rouleaux Not Reportable 06/07/20 11:15 Hemoglobin C Crystals Not Reportable 06/07/20 11:15 Schistocytes Not Reportable 06/07/20 11:15 Malaria parasites Not Reportable 06/07/20 11:15 Lizandro Bodies Not Reportable 06/07/20 11:15 Hem Pathologist Commnt No 06/07/20 11:15 PT 13.4 Sec. (12.2-14.9) 06/07/20 11:15 INR 1.00 (0.87-1.13) 06/07/20 11:15 D-Dimer 149.46 ng/mlDDU (0-234) 06/07/20 12:40 ABG pH 7.395 (7.320-7.450) 06/07/20 11:35 POC ABG pCO2 46.8 mmHg (32.0-48.0) 06/07/20 11:35 POC ABG pO2 220.9 mmHg (83-108) H 06/07/20 11:35 POC ABG HCO3 28.0 06/07/20 11:35 POC ABG Base Excess 2.5 06/07/20 11:35 ABG Hemoglobin 14.2 (12.0-17.5) 06/07/20 11:35 ABG Sodium 136.6 mmol/L (136.0-145.0) 06/07/20 11:35 ABG Potassium 4.0 mmol/L (3.40-4.50) 06/07/20 11:35 ABG Chloride 100.0 mmol/L (98-107) 06/07/20 11:35 ABG Glucose 179 mg/dL (65-95) H 06/07/20 11:35 FiO2 30.0 06/07/20 11:35 Sodium 137 mmol/L (137-145) 06/07/20 11:15 Potassium 4.2 mmol/L (3.6-5.0) 06/07/20 11:15 Chloride 100.2 mmol/L (98-107) 06/07/20 11:15 Carbon Dioxide 27 mmol/L (22-30) 06/07/20 11:15 Anion Gap 14 mmol/L 06/07/20 11:15 BUN 17 mg/dL (9-20) 06/07/20 11:15 Creatinine 0.4 mg/dL (0.8-1.3) L 06/07/20 11:15 Estimated GFR > 60 ml/min 06/07/20 11:15 BUN/Creatinine Ratio 43 % 06/07/20 11:15 Glucose 202 mg/dL (75-100) H 06/07/20 12:40 Calcium 9.5 mg/dL (8.4-10.2) 06/07/20 11:15 Ferritin 1675.0 ng/mL (30.0-300.0) H 06/07/20 12:40 Total Bilirubin 0.50 mg/dL (0.1-1.2) 06/07/20 11:15 AST 14 units/L (5-40) 06/07/20 11:15 ALT 50 units/L (7-56) 06/07/20 11:15 Alkaline Phosphatase 86 units/L (35-129) 06/07/20 11:15 Lactate Dehydrogenase 300 units/L (91-180) H 06/07/20 12:40 Troponin T < 0.010 ng/mL (0.00-0.029) 06/07/20 11:15 C-Reactive Protein 5.60 mg/dL (0.00-1.30) H 06/07/20 12:40 NT-Pro-B Natriuret Pep 296.7 pg/mL (0-900) 06/07/20 11:15 Total Protein 6.1 g/dL (6.3-8.2) L 06/07/20 11:15 Albumin 3.0 g/dL (3.9-5) L 06/07/20 11:15 Albumin/Globulin Ratio 1.0 % 06/07/20 11:15 Procalcitonin 0.40 ng/mL (<0.15) 06/07/20 12:40 Arterial Blood Glucose 179 mg/dL (65-95) H 06/07/20 11:35 Arterial Blood Ionized Calcium 4.9 mg/dL (4.6-5.3) 06/07/20 11:35 Microbiology: Microbiology 06/07/20 12:40 Peripheral/Venous Blood Culture - Preliminary Culture in Progress 06/07/20 12:40 Peripheral/Venous Blood Culture - Preliminary Culture in Progress Rosado/IV: Voiding Method Urinal IV Catheter Type [Right INT / Saline Lock Antecubital] IV Catheter Type [Right Hand] INT / Saline Lock Active Medications - Current Medications Current Medications: Generic Name Dose Route Start Last Admin Trade Name Freq PRN Reason Stop Dose Admin Acetaminophen 650 mg 06/08/20 08:20 Tylenol PO Q6H PRN Pain MILD(1-3)/Fever >100.5/VALLECILLO Hydrocodone Bitart/Acetaminophen 1 each 06/08/20 08:15 [place] 5/325 PO Q6HR PRN Pain, Moderate (4-6) Albuterol 2.5 mg 06/08/20 08:19 Proventil IH Q4HRT PRN Shortness Of Breath Albuterol/Ipratropium 1 ampul 06/08/20 08:30 Duoneb *Not For Prn Use* IH Q6HRT LARRY Budesonide 0.5 mg 06/08/20 20:00 Pulmicort IH Q12HRT LARRY Dextrose 50 ml 06/08/20 08:20 D50w (25gm) Syringe IV Q30MIN PRN Hypoglycemia Protocol Docusate Sodium 100 mg 06/08/20 10:00 06/08/20 09:41 Colace PO 100 mg BID LARRY Administration Fish Oil 1,000 mg 06/08/20 14:00 Fish Oil PO TID LARRY Ceftriaxone Sodium 2 gm in 100 mls @ 200 mls/hr 06/07/20 13:00 06/08/20 09:40 Rocephin/Ns 2 Gm/100 Ml IV 100 mls/hr Q24HR LARRY Administration Protocol Azithromycin 500 mg/ Sodium 250 mls @ 250 mls/hr 06/07/20 13:00 06/08/20 09:40 Chloride IV 250 mls/hr Q24HR LARRY Administration Protocol Lorazepam 0.5 mg 06/07/20 17:01 Ativan IV Q1H PRN Anxiety Methylprednisolone Sodium Succinate 60 mg 06/08/20 09:00 06/08/20 09:41 Solu-Medrol IV 60 mg Q6H LARRY Administration Morphine Sulfate 2 mg 06/08/20 08:20 Morphine IV Q4H PRN Pain, Moderate (4-6) Naloxone HCl 0.1 mg 06/08/20 08:20 Naloxone IV Q2MIN PRN Res Rate </= 8 or 02 SAT < 92% Ondansetron HCl 4 mg 06/07/20 16:30 06/07/20 16:30 Zofran IV 4 mg Q8H PRN Administration Nausea And Vomiting Pravastatin Sodium 40 mg 06/08/20 22:00 Pravachol PO QHS LARRY Sodium Chloride 10 ml 06/08/20 10:00 06/08/20 09:42 Sodium Chloride Flush Syringe 10 Ml IV 10 ml BID LARRY Administration Sodium Chloride 10 ml 06/08/20 08:20 Sodium Chloride Flush Syringe 10 Ml IV PRN PRN LINE FLUSH
[2020-06-08] MEDS: OMEGA-3 FATTY ACIDS/FISH OIL 1 GRAM CAP PO SCH ×2 (15:00→21:53)
--- NOTE | 2020-06-08 16:37 | Consultation ---
History of Present Illness Consult date: 06/08/20 Requesting physician: HEBERT PINEDA Reason for consult: dyspnea, hypoxemia History of present illness: 59 y/o male with prior history of lung CA admitted with hypoxemia and shortness of breath. As admitted to [facility] but refused bipap and is actually satting well on ROOM air. Pulmonary has been consulted for COPD exacerbation. CTA was negative for PE but shows upper lobe cavitary mass like lesion with satellite mass like cavitary lesions above this. There is also extensive adenopathy and large paraesophageal mass that encases the RIGHT MAINSTEM. Im not sure how much of this is new vs old cancer. Past History Past Medical History: cancer, diabetes, hypertension, hyperlipidemia Past Surgical History: No surgical history, Other (Reviewed) Social history: single, smoking Medications and Allergies Allergies Allergy/AdvReac Type Severity Reaction Status Date / Time No Known Allergies Allergy Verified 01/29/15 21:43 Home Medications Medication Instructions Recorded Confirmed Last Taken Type Clindamycin [Clindamycin CAP] 300 mg PO Q8H 10 Days cap 02/04/15 06/08/20 Unknown Rx Metformin HCl [Glucophage] 1,000 mg PO BID #180 tablet 02/04/15 06/08/20 Unknown Rx Beauty-3 Fatty Acids/Fish Oil [Fish 1 each PO TID #90 capsule 02/04/15 06/08/20 Unknown Rx Oil 1,000 mg Softgel] Pravastatin [Pravachol] 40 mg PO QHS #90 tablet 02/04/15 06/08/20 Unknown Rx Sulfamethoxazole/Trimethoprim 1 each PO Q12HR 10 Days tablet 02/04/15 06/08/20 Unknown Rx [Bactrim DS TAB] HYDROcodone/APAP 5-325 [[place] 1 each PO Q6HR PRN #24 tablet 10/22/16 06/08/20 Unknown Rx 5/325] Ibuprofen [Motrin 800 MG tab] 800 mg PO Q8HR PRN #40 tablet 10/22/16 06/08/20 Unknown Rx Active Meds: Active Medications Acetaminophen (Tylenol) 650 mg PO Q6H PRN PRN Reason: Pain MILD(1-3)/Fever >100.5/[place] Hydrocodone Bitart/Acetaminophen ([place] 5/325) 1 each PO Q6HR PRN PRN Reason: Pain, Moderate (4-6) Albuterol (Proventil) 2.5 mg IH Q4HRT PRN PRN Reason: Shortness Of Breath Albuterol/Ipratropium (Duoneb *Not For Prn Use*) 1 ampul IH Q6HRT [facility] Last Admin: 06/08/20 15:45 Dose: 1 ampul Documented by: Budesonide (Pulmicort) 0.5 mg IH Q12HRT [facility] Dextrose (D50w (25gm) Syringe) 50 ml IV Q30MIN PRN; Protocol PRN Reason: Hypoglycemia Docusate Sodium (Colace) 100 mg PO BID [facility] Last Admin: 06/08/20 09:41 Dose: 100 mg Documented by: Fish Oil (Fish Oil) 1,000 mg PO TID [facility] Last Admin: 06/08/20 15:00 Dose: 1,000 mg Documented by: Ceftriaxone Sodium (Rocephin/Ns 2 Gm/100 Ml) 2 gm in 100 mls @ 200 mls/hr IV Q24HR [facility]; Protocol Last Admin: 06/08/20 09:40 Dose: 100 mls/hr Documented by: Azithromycin 500 mg/ Sodium (Chloride) 250 mls @ 250 mls/hr IV Q24HR [facility]; Protocol Last Admin: 06/08/20 09:40 Dose: 250 mls/hr Documented by: Lorazepam (Ativan) 0.5 mg IV Q1H PRN PRN Reason: Anxiety Methylprednisolone Sodium Succinate (Solu-Medrol) 60 mg IV Q6H [facility] Last Admin: 06/08/20 14:59 Dose: 60 mg Documented by: Morphine Sulfate (Morphine) 2 mg IV Q4H PRN PRN Reason: Pain, Moderate (4-6) Naloxone HCl (Naloxone) 0.1 mg IV Q2MIN PRN PRN Reason: Res Rate </= 8 or 02 SAT < 92% Ondansetron HCl (Zofran) 4 mg IV Q8H PRN PRN Reason: Nausea And Vomiting Last Admin: 06/07/20 16:30 Dose: 4 mg Documented by: Pravastatin Sodium (Pravachol) 40 mg PO QHS [facility] Sodium Chloride (Sodium Chloride Flush Syringe 10 Ml) 10 ml IV BID [facility] Last Admin: 06/08/20 09:42 Dose: 10 ml Documented by: Sodium Chloride (Sodium Chloride Flush Syringe 10 Ml) 10 ml IV PRN PRN PRN Reason: LINE FLUSH Physical Examination Vital signs: Vital Signs Pulse Resp BP Pulse Ox 124 H 34 H 140/78 99 06/07/20 10:59 06/07/20 10:59 06/07/20 10:59 06/07/20 10:59 Patient not examined in person as he is on airborne precautions and I do not have an N95 at this time. Results - Laboratory Findings CBC and BMP: 06/07/20 11:15 06/07/20 12:40 ABG ABG pH 7.395 (7.320-7.450) 06/07/20 11:35 POC ABG pCO2 46.8 mmHg (32.0-48.0) 06/07/20 11:35 POC ABG pO2 220.9 mmHg (83-108) H 06/07/20 11:35 POC ABG HCO3 28.0 06/07/20 11:35 PT/INR, D-dimer PT 13.4 Sec. (12.2-14.9) 06/07/20 11:15 INR 1.00 (0.87-1.13) 06/07/20 11:15 D-Dimer 149.46 ng/mlDDU (0-234) 06/07/20 12:40 Abnormal lab findings: Abnormal Labs 06/07/20 06/07/20 06/07/20 11:15 11:15 11:35 Seg Neuts % (Manual) 97.0 H Lymphocytes % (Manual) 2.0 L Seg Neutrophils # Man 10.5 H Lymphocytes # (Manual) 0.2 L POC ABG pO2 220.9 H ABG Glucose 179 H Creatinine 0.4 L Glucose 160 H Ferritin Lactate Dehydrogenase C-Reactive Protein Total Protein 6.1 L Albumin 3.0 L Arterial Blood Glucose 179 H 06/07/20 06/07/20 12:40 12:40 Seg Neuts % (Manual) Lymphocytes % (Manual) Seg Neutrophils # Man Lymphocytes # (Manual) POC ABG pO2 ABG Glucose Creatinine Glucose 202 H Ferritin 1675.0 H Lactate Dehydrogenase 300 H C-Reactive Protein 5.60 H Total Protein Albumin Arterial Blood Glucose - Diagnostic Findings Chest x-ray: image reviewed CT scan - chest: image reviewed Assessment and Plan 59 y/o male with dyspnea and prior history of lung CA, admitted with shortness of breath. Pulmonary consulted for COPD exacerbation. 1. Ok with current dose of steroids 2. Ok with current neb treatments 3. If specific questions are asked about the malignancy, please reach out 4. Need to obtain records in regards to outside therapies.
[2020-06-08] MEDS: BUDESONIDE 0.5 MG/2 ML NEBU IH SCH (20:24)
[2020-06-08] MEDS: PRAVASTATIN 40 MG TAB PO SCH (21:53)
[2020-06-09] MEDS: IPRATROPIUM/ALBUTEROL SULFATE 3 ML AMPUL.NEB IH SCH ×4 (02:02→20:42)
[2020-06-09] MEDS: ONDANSETRON 4 MG/2 ML INJ IV PRN (03:02)
[2020-06-09] MEDS: methylPREDNISolone Sod Succinate 125 MG/2 ML INJ IV SCH ×4 (03:02→20:34)
[2020-06-09 05:36] LABS: Hematocrit 33.8 % (35.5-45.6); Hemoglobin 11.6 gm/dl (11.8-15.2); Mean Corpuscular HGB Conc 34 % (32-34); Mean Corpuscular Volume 89 fl (84-94); Platelet Count 160 K/mm3 (140-440); Red Blood Count 3.82 M/mm3 (3.65-5.03); Red Cell Distribution Width 15.2 % (13.2-15.2)
[2020-06-09 05:38] LABS: Lymphocytes % (Auto) 7.8 % (13.4-35.0)
[2020-06-09 05:39] LABS: Basophils % (Auto) 0.1 % (0.0-1.8); Lymphocytes # (Auto) 0.2 K/mm3 (1.2-5.4); Monocytes # (Auto) 0.1 K/mm3 (0.0-0.8); Monocytes % (Auto) 5.3 % (0.0-7.3)
[2020-06-09 05:46] LABS: Blood Urea Nitrogen 15 mg/dL (9-20); Hemolysis Index 4
[2020-06-09 05:58] LABS: BUN/Creatinine Ratio 50
[2020-06-09] MEDS: BUDESONIDE 0.5 MG/2 ML NEBU IH SCH ×2 (08:25→20:43)
[2020-06-09] MEDS: OMEGA-3 FATTY ACIDS/FISH OIL 1 GRAM CAP PO SCH ×3 (08:37→20:34)
[2020-06-09] MEDS: DOCUSATE SODIUM 100 MG CAP PO SCH ×2 (09:00→22:41)
[2020-06-09] MEDS: cefTRIAXone/NS 2 GM/100 ML 2 GM/100 ML BAG IV SCH (09:00)
[2020-06-09] MEDS: AZITHROMYCIN 250 MG TAB PO SCH (09:00)
--- NOTE | 2020-06-09 11:31 | Progress Note ---
Assessment and Plan 59 y/o male with dyspnea and prior history of lung CA, admitted with shortness of breath. Pulmonary consulted for COPD exacerbation. 1. Ok with current dose of steroids 2. Ok with current neb treatments 3. If specific questions are asked about the malignancy, please reach out 4. Need to obtain records in regards to outside therapies. Please transfer to [facility] floor Subjective Date of service: 06/09/20 Objective Vital Signs - 12hr 06/08/20 06/08/20 06/08/20 23:40 23:41 23:50 Temperature Pulse Rate 79 77 75 Pulse Rate [ Bilateral Throughout] Pulse Rate [ From Monitor] Respiratory 14 16 12 Rate Respiratory Rate [Bilateral Throughout] Blood Pressure 115/66 115/66 115/66 O2 Sat by Pulse 98 98 99 Oximetry 06/08/20 06/09/20 06/09/20 23:51 00:00 00:01 Temperature Pulse Rate 82 95 H 80 Pulse Rate [ Bilateral Throughout] Pulse Rate [ 85 From Monitor] Respiratory 15 21 16 Rate Respiratory Rate [Bilateral Throughout] Blood Pressure 115/66 115/66 127/63 O2 Sat by Pulse 99 98 98 Oximetry 06/09/20 06/09/20 06/09/20 00:10 00:20 00:30 Temperature Pulse Rate 77 79 78 Pulse Rate [ Bilateral Throughout] Pulse Rate [ From Monitor] Respiratory 19 19 18 Rate Respiratory Rate [Bilateral Throughout] Blood Pressure 127/63 127/63 127/63 O2 Sat by Pulse 99 99 99 Oximetry 06/09/20 06/09/20 06/09/20 00:38 00:40 00:50 Temperature 97.9 F Pulse Rate 77 76 Pulse Rate [ Bilateral Throughout] Pulse Rate [ From Monitor] Respiratory 18 19 Rate Respiratory Rate [Bilateral Throughout] Blood Pressure 127/63 127/63 O2 Sat by Pulse 99 98 Oximetry 06/09/20 06/09/20 06/09/20 01:00 01:10 01:20 Temperature Pulse Rate 76 80 70 Pulse Rate [ Bilateral Throughout] Pulse Rate [ From Monitor] Respiratory 21 19 18 Rate Respiratory Rate [Bilateral Throughout] Blood Pressure 140/72 140/72 140/72 O2 Sat by Pulse 96 92 99 Oximetry 06/09/20 06/09/20 06/09/20 01:30 01:40 01:50 Temperature Pulse Rate 76 75 88 Pulse Rate [ Bilateral Throughout] Pulse Rate [ From Monitor] Respiratory 18 21 18 Rate Respiratory Rate [Bilateral Throughout] Blood Pressure 140/72 140/72 140/72 O2 Sat by Pulse 98 99 99 Oximetry 06/09/20 06/09/20 06/09/20 02:00 02:10 02:20 Temperature Pulse Rate 74 77 73 Pulse Rate [ Bilateral Throughout] Pulse Rate [ From Monitor] Respiratory 18 16 17 Rate Respiratory Rate [Bilateral Throughout] Blood Pressure 131/68 131/68 131/68 O2 Sat by Pulse 99 98 99 Oximetry 06/09/20 06/09/20 06/09/20 02:30 02:40 02:50 Temperature Pulse Rate 70 77 85 Pulse Rate [ Bilateral Throughout] Pulse Rate [ From Monitor] Respiratory 17 17 21 Rate Respiratory Rate [Bilateral Throughout] Blood Pressure 131/68 131/68 131/68 O2 Sat by Pulse 99 98 98 Oximetry 06/09/20 06/09/20 06/09/20 03:00 03:10 03:20 Temperature Pulse Rate 71 84 72 Pulse Rate [ Bilateral Throughout] Pulse Rate [ From Monitor] Respiratory 25 H 20 24 Rate Respiratory Rate [Bilateral Throughout] Blood Pressure 131/68 131/68 137/72 O2 Sat by Pulse 98 97 99 Oximetry 06/09/20 06/09/20 06/09/20 03:30 03:40 03:50 Temperature Pulse Rate 77 73 72 Pulse Rate [ Bilateral Throughout] Pulse Rate [ From Monitor] Respiratory 16 18 16 Rate Respiratory Rate [Bilateral Throughout] Blood Pressure 137/72 137/72 137/72 O2 Sat by Pulse 99 99 99 Oximetry 06/09/20 06/09/20 06/09/20 04:00 04:10 04:20 Temperature 97.6 F Pulse Rate 75 89 68 Pulse Rate [ Bilateral Throughout] Pulse Rate [ 84 From Monitor] Respiratory 16 19 18 Rate Respiratory Rate [Bilateral Throughout] Blood Pressure 140/74 140/74 140/74 O2 Sat by Pulse 99 98 98 Oximetry 06/09/20 06/09/20 06/09/20 04:30 04:40 04:50 Temperature Pulse Rate 72 92 H 68 Pulse Rate [ Bilateral Throughout] Pulse Rate [ From Monitor] Respiratory 17 22 17 Rate Respiratory Rate [Bilateral Throughout] Blood Pressure 140/74 140/74 140/74 O2 Sat by Pulse 98 98 98 Oximetry 06/09/20 06/09/20 06/09/20 05:00 05:10 05:20 Temperature Pulse Rate 68 65 70 Pulse Rate [ Bilateral Throughout] Pulse Rate [ From Monitor] Respiratory 15 17 16 Rate Respiratory Rate [Bilateral Throughout] Blood Pressure 138/74 138/74 138/74 O2 Sat by Pulse 99 98 97 Oximetry 06/09/20 06/09/20 06/09/20 05:30 05:40 05:50 Temperature Pulse Rate 69 67 67 Pulse Rate [ Bilateral Throughout] Pulse Rate [ From Monitor] Respiratory 17 17 16 Rate Respiratory Rate [Bilateral Throughout] Blood Pressure 138/74 138/74 138/74 O2 Sat by Pulse 96 98 98 Oximetry 06/09/20 06/09/20 06/09/20 06:00 06:10 06:20 Temperature Pulse Rate 80 86 82 Pulse Rate [ Bilateral Throughout] Pulse Rate [ From Monitor] Respiratory 24 14 22 Rate Respiratory Rate [Bilateral Throughout] Blood Pressure 126/84 126/84 126/84 O2 Sat by Pulse 99 98 99 Oximetry 06/09/20 06/09/20 06/09/20 06:30 06:40 06:50 Temperature Pulse Rate 79 103 H 72 Pulse Rate [ Bilateral Throughout] Pulse Rate [ From Monitor] Respiratory 16 27 H 22 Rate Respiratory Rate [Bilateral Throughout] Blood Pressure 126/84 126/84 126/84 O2 Sat by Pulse 99 97 94 Oximetry 06/09/20 06/09/20 06/09/20 07:00 07:10 07:20 Temperature Pulse Rate 81 69 90 Pulse Rate [ Bilateral Throughout] Pulse Rate [ From Monitor] Respiratory 21 20 20 Rate Respiratory Rate [Bilateral Throughout] Blood Pressure 122/68 122/68 122/68 O2 Sat by Pulse 98 97 100 Oximetry 06/09/20 06/09/20 06/09/20 07:30 07:40 07:50 Temperature Pulse Rate 74 90 84 Pulse Rate [ Bilateral Throughout] Pulse Rate [ From Monitor] Respiratory 15 14 16 Rate Respiratory Rate [Bilateral Throughout] Blood Pressure 122/68 122/68 122/68 O2 Sat by Pulse 99 99 90 Oximetry 06/09/20 06/09/20 06/09/20 08:00 08:10 08:20 Temperature Pulse Rate 77 79 87 Pulse Rate [ Bilateral Throughout] Pulse Rate [ 77 From Monitor] Respiratory 11 L 14 17 Rate Respiratory Rate [Bilateral Throughout] Blood Pressure 132/78 132/78 132/78 O2 Sat by Pulse 100 98 100 Oximetry 06/09/20 06/09/20 06/09/20 08:30 08:32 08:40 Temperature Pulse Rate 81 76 Pulse Rate [ 78 Bilateral Throughout] Pulse Rate [ From Monitor] Respiratory 18 20 Rate Respiratory 18 Rate [Bilateral Throughout] Blood Pressure 132/78 132/78 O2 Sat by Pulse 100 97 Oximetry 06/09/20 06/09/20 06/09/20 08:50 09:00 09:10 Temperature Pulse Rate 77 87 98 H Pulse Rate [ Bilateral Throughout] Pulse Rate [ From Monitor] Respiratory 21 15 29 H Rate Respiratory Rate [Bilateral Throughout] Blood Pressure 132/78 135/78 135/78 O2 Sat by Pulse 99 98 93 Oximetry 06/09/20 06/09/20 06/09/20 09:20 09:30 09:40 Temperature Pulse Rate 90 97 H 86 Pulse Rate [ Bilateral Throughout] Pulse Rate [ From Monitor] Respiratory 22 21 19 Rate Respiratory Rate [Bilateral Throughout] Blood Pressure 135/78 135/78 135/78 O2 Sat by Pulse 94 96 87 Oximetry 06/09/20 06/09/20 06/09/20 09:50 10:00 10:10 Temperature Pulse Rate 94 H 78 95 H Pulse Rate [ Bilateral Throughout] Pulse Rate [ From Monitor] Respiratory 21 17 14 Rate Respiratory Rate [Bilateral Throughout] Blood Pressure 135/78 133/67 133/67 O2 Sat by Pulse 95 96 97 Oximetry 06/09/20 06/09/20 10:20 10:30 Temperature Pulse Rate 76 107 H Pulse Rate [ Bilateral Throughout] Pulse Rate [ From Monitor] Respiratory 17 20 Rate Respiratory Rate [Bilateral Throughout] Blood Pressure 133/67 133/67 O2 Sat by Pulse 96 98 Oximetry CBC and BMP: 06/09/20 05:25 06/09/20 05:25 ABG, PT/INR, D-dimer: ABG ABG pH 7.395 (7.320-7.450) 06/07/20 11:35 POC ABG pCO2 46.8 mmHg (32.0-48.0) 06/07/20 11:35 POC ABG pO2 220.9 mmHg (83-108) H 06/07/20 11:35 POC ABG HCO3 28.0 06/07/20 11:35 PT/INR, D-dimer PT 13.4 Sec. (12.2-14.9) 06/07/20 11:15 INR 1.00 (0.87-1.13) 06/07/20 11:15 D-Dimer 149.46 ng/mlDDU (0-234) 06/07/20 12:40 Abnormal lab findings: Abnormal Labs 06/07/20 06/07/20 06/07/20 11:15 11:15 11:35 WBC Hgb Hct Lymph % (Auto) Lymph # (Auto) Seg Neutrophils % Seg Neuts % (Manual) 97.0 H Lymphocytes % (Manual) 2.0 L Seg Neutrophils # Man 10.5 H Lymphocytes # (Manual) 0.2 L POC ABG pO2 220.9 H ABG Glucose 179 H Chloride Creatinine 0.4 L Glucose 160 H POC Glucose Ferritin Lactate Dehydrogenase C-Reactive Protein Total Protein 6.1 L Albumin 3.0 L Arterial Blood Glucose 179 H 06/07/20 06/07/20 06/08/20 12:40 12:40 13:32 WBC Hgb Hct Lymph % (Auto) Lymph # (Auto) Seg Neutrophils % Seg Neuts % (Manual) Lymphocytes % (Manual) Seg Neutrophils # Man Lymphocytes # (Manual) POC ABG pO2 ABG Glucose Chloride Creatinine Glucose 202 H POC Glucose 179 H Ferritin 1675.0 H Lactate Dehydrogenase 300 H C-Reactive Protein 5.60 H Total Protein Albumin Arterial Blood Glucose 06/08/20 06/08/20 06/09/20 17:12 23:22 05:25 WBC 2.8 L Hgb 11.6 L Hct 33.8 L D Lymph % (Auto) 7.8 L Lymph # (Auto) 0.2 L Seg Neutrophils % 86.8 H Seg Neuts % (Manual) Lymphocytes % (Manual) Seg Neutrophils # Man Lymphocytes # (Manual) POC ABG pO2 ABG Glucose Chloride Creatinine Glucose POC Glucose 200 H 209 H Ferritin Lactate Dehydrogenase C-Reactive Protein Total Protein Albumin Arterial Blood Glucose 06/09/20 05:25 WBC Hgb Hct Lymph % (Auto) Lymph # (Auto) Seg Neutrophils % Seg Neuts % (Manual) Lymphocytes % (Manual) Seg Neutrophils # Man Lymphocytes # (Manual) POC ABG pO2 ABG Glucose Chloride 96.6 L Creatinine 0.3 L Glucose 187 H POC Glucose Ferritin Lactate Dehydrogenase C-Reactive Protein Total Protein Albumin Arterial Blood Glucose
[2020-06-09] MEDS ORDERED: INSULIN GLARGINE 100 UNITS/ML SUB-Q ONE (11:35)
[2020-06-09] MEDS: INSULIN LISPRO 100 UNIT/ML VIAL 3 mL SUB-Q SCH ×3 (12:06→22:41)
--- NOTE | 2020-06-09 12:23 | Progress Note ---
Assessment and Plan Assessment and plan: 59 YO Male with Lung Cancer, Chronic Respiratory Failure on 4L Home Oxygen via [place], DM, HTN, Obesity,HLD, Nicotine Dependence presents to ED for evaluation. Patient is short of breath and is currently on noninvasive positive pressure ventilation at the time of my evaluation and is unable to give detailed history due to shortness of breath. Patient uses head-nodding to her knowledge symptoms. Patient reports that he had experienced shortness of breath over the past 1 day with persistent symptoms over the same timeframe. EMS notified and upon arrival the patient was found to be in distress and subsequently transported to [facility] for further care and evaluation of the aforementioned symptoms. Patient seen and evaluated in the emergency department. Lab and imaging studies reviewed. Chest x-ray reveals evidence of bilateral pneumonia. Patient found to have a pulse oximetry of 86% on room air which is consistent with acute hypoxemic respiratory failure. Patient subsequently placed on noninvasive positive pressure ventilation with mild improvement in symptoms. Patient initiated on coronavirus protocol in the emergency department prior to my evaluation. Patient admitted to [facility] due to increased risk of pulmonary decompensation. No reports of fever, chills, chest pain, productive cough, recent ill contacts, or known exposure to COVID-19. All medication listed at time of admission has been reconciled. Patient is sitting up in bed, using accessory muscles to breathe, tripoding. Patient is able to protect his airway at this time. CT CHEST: IMPRESSION: 1. Large soft tissue mass encasing right mainstem bronchus with associated bronchiectasis and central 6.4 cm cavitary lesion within right upper lobe. 2. Extensive mediastinal adenopathy 3. Multiple cavitary nodules and bilateral lower lobe nodular likely infectious/inflammatory parenchymal disease could represent superimposed TB. Respiratory precautions recommended. 4. No CT evidence for pulmonary embolus Discussed importance of compliance with the patient, he verbalized understanding 06/09. Patient seen and examined at bedside this morning. Patient is off BiPAP. He is saturating well on oxygen supplementation. On Solu-Medrol 60 mg every 6. Pulmonology recommendations appreciated. Patient can be transferred to the floors. (1) Acute hypoxemic respiratory failure Current Visit: Yes Status: Acute Plan to address problem: Supplemental oxygen, pulse oximetry, chest x-ray, CT chest, nebulizer therapy, noninvasive positive pressure ventilation as clinically indicated, Pulmonary recommendation appreciated Solu-Medrol 60 mg every 6 Wean oxygen as tolerated Transfer to the floor (2) Lung cancer Current Visit: Yes Status: Acute Qualifiers: Lung location: unspecified part of lung Plan to address problem: Supportive care, supplemental oxygen, CT scan of the chest, outpatient oncology follow-up. Currently on Chemotherapy per patient (3) Suspected 2019-nCoV infection negative (4) Bilateral pneumonia Current Visit: Yes Status: Acute Plan to address problem: Pneumonia protocol: CBC, BMP, chest x-ray, IV antibiotic therapy, nebulizer the rapy, noninvasive positive pressure ventilation as clinically indicated, blood culture. (5) Hypertension Current Visit: Yes Status: Acute Qualifiers: Hypertension type: essential hypertension Qualified Code(s): I10 - Essential (primary) hypertension Plan to address problem: Monitor blood pressure every shift, continue medical management. (6) Diabetes Current Visit: Yes Status: Acute Plan to address problem: Started on Lantus and lispro Monitor fingersticks closely as patient is on steroids (7) Nicotine dependence Current Visit: Yes Status: Acute Qualifiers: Nicotine product type: cigarettes Substance use status: in withdrawal Qualified Code(s): F17.213 - Nicotine dependence, cigarettes, with withdrawal Plan to address problem: Supportive care, smoking cessation counseling, behavior change counseling, +15 minutes. (8) DVT prophylaxis Current Visit: Yes Status: Acute Plan to address problem: SCD to bilateral lower extremities while in bed, prophylactic anticoagulation (9) Advance care planning Current Visit: Yes Status: Acute Plan to address problem: Disease education conducted, patient is full code, prognosis discussed, patient knowledges understanding and agreement with care plan, +30 minutes History Interval history: Patient seen and examined at bedside this morning. He has no complaints today. He feels slightly better. Has occasional cough. Denies any chest pain or palpitations. Patient stable to be transferred to the floor today. Still maintained on steroids Hospitalist Physical - Constitutional Vitals: Temp Pulse Resp BP Pulse Ox 97.6 F 107 H 20 133/67 98 06/09/20 04:00 06/09/20 10:30 06/09/20 10:30 06/09/20 10:30 06/09/20 10:30 General appearance: Present: no acute distress - EENT Eyes: Present: PERRL - Neck Neck: Present: supple - Respiratory Respiratory: bilateral: wheezing - Cardiovascular Heart Sounds: Present: S1 & S2 - Extremities Extremities: abnormal (Diffuse scaly rash on bilateral lower extremities which appear chronic) - Abdominal General gastrointestinal: soft, non-tender, non-distended, normal bowel sounds - Psychiatric Psychiatric: appropriate mood/affect - Neurologic Neurologic: CNII-XII intact HEART Score - HEART Score Troponin: Troponin T < 0.010 ng/mL (0.00-0.029) 06/07/20 11:15 Results - Labs CBC & Chem 7: 06/09/20 05:25 06/09/20 05:25 Labs: Laboratory Last Values WBC 2.8 K/mm3 (4.5-11.0) L 06/09/20 05:25 RBC 3.82 M/mm3 (3.65-5.03) 06/09/20 05:25 Hgb 11.6 gm/dl (11.8-15.2) L 06/09/20 05:25 Hct 33.8 % (35.5-45.6) L D 06/09/20 05:25 MCV 89 fl (84-94) 06/09/20 05:25 MCH 31 pg (28-32) 06/09/20 05:25 MCHC 34 % (32-34) 06/09/20 05:25 RDW 15.2 % (13.2-15.2) 06/09/20 05:25 Plt Count 160 K/mm3 (140-440) 06/09/20 05:25 Lymph % (Auto) 7.8 % (13.4-35.0) L 06/09/20 05:25 Randall % (Auto) 5.3 % (0.0-7.3) 06/09/20 05:25 Eos % (Auto) 0.0 % (0.0-4.3) 06/09/20 05:25 Baso % (Auto) 0.1 % (0.0-1.8) 06/09/20 05:25 Lymph # (Auto) 0.2 K/mm3 (1.2-5.4) L 06/09/20 05:25 Randall # (Auto) 0.1 K/mm3 (0.0-0.8) 06/09/20 05:25 Eos # (Auto) 0.0 K/mm3 (0.0-0.4) 06/09/20 05:25 Baso # (Auto) 0.0 K/mm3 (0.0-0.1) 06/09/20 05:25 Add Manual Diff Complete 06/07/20 11:15 Total Counted 100 06/07/20 11:15 Seg Neutrophils % 86.8 % (40.0-70.0) H 06/09/20 05:25 Seg Neuts % (Manual) 97.0 % (40.0-70.0) H 06/07/20 11:15 Band Neutrophils % 0 % 06/07/20 11:15 Lymphocytes % (Manual) 2.0 % (13.4-35.0) L 06/07/20 11:15 Reactive Lymphs % (Man) 0 % 06/07/20 11:15 Monocytes % (Manual) 0 % (0.0-7.3) 06/07/20 11:15 Eosinophils % (Manual) 0 % (0.0-4.3) 06/07/20 11:15 Basophils % (Manual) 0 % (0.0-1.8) 06/07/20 11:15 Metamyelocytes % 1.0 % 06/07/20 11:15 Myelocytes % 0 % 06/07/20 11:15 Promyelocytes % 0 % 06/07/20 11:15 Blast Cells % 0 % 06/07/20 11:15 Nucleated RBC % Not Reportable 06/07/20 11:15 Seg Neutrophils # 2.4 K/mm3 (1.8-7.7) 06/09/20 05:25 Seg Neutrophils # Man 10.5 K/mm3 (1.8-7.7) H 06/07/20 11:15 Band Neutrophils # 0.0 K/mm3 06/07/20 11:15 Lymphocytes # (Manual) 0.2 K/mm3 (1.2-5.4) L 06/07/20 11:15 Abs React Lymphs (Man) 0.0 K/mm3 06/07/20 11:15 Monocytes # (Manual) 0.0 K/mm3 (0.0-0.8) 06/07/20 11:15 Eosinophils # (Manual) 0.0 K/mm3 (0.0-0.4) 06/07/20 11:15 Basophils # (Manual) 0.0 K/mm3 (0.0-0.1) 06/07/20 11:15 Metamyelocytes # 0.1 K/mm3 06/07/20 11:15 Myelocytes # 0.0 K/mm3 06/07/20 11:15 Promyelocytes # 0.0 K/mm3 06/07/20 11:15 Blast Cells # 0.0 K/mm3 06/07/20 11:15 WBC Morphology Not Reportable 06/07/20 11:15 WBC Morphology TNR 06/07/20 11:15 Hypersegmented Neuts Not Reportable 06/07/20 11:15 Hyposegmented Neuts Not Reportable 06/07/20 11:15 Hypogranular Neuts Not Reportable 06/07/20 11:15 Smudge Cells Not Reportable 06/07/20 11:15 Toxic Granulation Not Reportable 06/07/20 11:15 Toxic Vacuolation Not Reportable 06/07/20 11:15 Dohle Bodies Not Reportable 06/07/20 11:15 Pelger-Huet Anomaly Not Reportable 06/07/20 11:15 Cristy Rods Not Reportable 06/07/20 11:15 Platelet Estimate Consistent w auto 06/07/20 11:15 Clumped Platelets Not Reportable 06/07/20 11:15 Plt Clumps, EDTA Not Reportable 06/07/20 11:15 Large Platelets Not Reportable 06/07/20 11:15 Giant Platelets Not Reportable 06/07/20 11:15 Platelet Satelliting Not Reportable 06/07/20 11:15 Plt Morphology Comment Not Reportable 06/07/20 11:15 RBC Morphology Normal 06/07/20 11:15 Dimorphic RBCs Not Reportable 06/07/20 11:15 Polychromasia Not Reportable 06/07/20 11:15 Hypochromasia Not Reportable 06/07/20 11:15 Poikilocytosis Not Reportable 06/07/20 11:15 Anisocytosis Not Reportable 06/07/20 11:15 Microcytosis Not Reportable 06/07/20 11:15 Macrocytosis Not Reportable 06/07/20 11:15 Spherocytes Not Reportable 06/07/20 11:15 Pappenheimer Bodies Not Reportable 06/07/20 11:15 Sickle Cells Not Reportable 06/07/20 11:15 Target Cells Not Reportable 06/07/20 11:15 Tear Drop Cells Not Reportable 06/07/20 11:15 Ovalocytes Not Reportable 06/07/20 11:15 Helmet Cells Not Reportable 06/07/20 11:15 [place] Bodies Not Reportable 06/07/20 11:15 [place] Rings Not Reportable 06/07/20 11:15 Layo Cells Not Reportable 06/07/20 11:15 Bite Cells Not Reportable 06/07/20 11:15 Crenated Cell Not Reportable 06/07/20 11:15 Elliptocytes Not Reportable 06/07/20 11:15 Acanthocytes (Spur) Not Reportable 06/07/20 11:15 Rouleaux Not Reportable 06/07/20 11:15 Hemoglobin C Crystals Not Reportable 06/07/20 11:15 Schistocytes Not Reportable 06/07/20 11:15 Malaria parasites Not Reportable 06/07/20 11:15 Lizandro Bodies Not Reportable 06/07/20 11:15 Hem Pathologist Commnt No 06/07/20 11:15 PT 13.4 Sec. (12.2-14.9) 06/07/20 11:15 INR 1.00 (0.87-1.13) 06/07/20 11:15 D-Dimer 149.46 ng/mlDDU (0-234) 06/07/20 12:40 ABG pH 7.395 (7.320-7.450) 06/07/20 11:35 POC ABG pCO2 46.8 mmHg (32.0-48.0) 06/07/20 11:35 POC ABG pO2 220.9 mmHg (83-108) H 06/07/20 11:35 POC ABG HCO3 28.0 06/07/20 11:35 POC ABG Base Excess 2.5 06/07/20 11:35 ABG Hemoglobin 14.2 (12.0-17.5) 06/07/20 11:35 ABG Sodium 136.6 mmol/L (136.0-145.0) 06/07/20 11:35 ABG Potassium 4.0 mmol/L (3.40-4.50) 06/07/20 11:35 ABG Chloride 100.0 mmol/L (98-107) 06/07/20 11:35 ABG Glucose 179 mg/dL (65-95) H 06/07/20 11:35 FiO2 30.0 06/07/20 11:35 Sodium 137 mmol/L (137-145) 06/09/20 05:25 Potassium 4.5 mmol/L (3.6-5.0) 06/09/20 05:25 Chloride 96.6 mmol/L (98-107) L 06/09/20 05:25 Carbon Dioxide 30 mmol/L (22-30) 06/09/20 05:25 Anion Gap 15 mmol/L 06/09/20 05:25 BUN 15 mg/dL (9-20) 06/09/20 05:25 Creatinine 0.3 mg/dL (0.8-1.3) L 06/09/20 05:25 Estimated GFR > 60 ml/min 06/09/20 05:25 BUN/Creatinine Ratio 50 % 06/09/20 05:25 Glucose 187 mg/dL (75-100) H 06/09/20 05:25 POC Glucose 209 (70-105) H 06/08/20 23:22 Calcium 9.0 mg/dL (8.4-10.2) 06/09/20 05:25 Ferritin 1675.0 ng/mL (30.0-300.0) H 06/07/20 12:40 Total Bilirubin 0.50 mg/dL (0.1-1.2) 06/07/20 11:15 AST 14 units/L (5-40) 06/07/20 11:15 ALT 50 units/L (7-56) 06/07/20 11:15 Alkaline Phosphatase 86 units/L (35-129) 06/07/20 11:15 Lactate Dehydrogenase 300 units/L (91-180) H 06/07/20 12:40 Troponin T < 0.010 ng/mL (0.00-0.029) 06/07/20 11:15 C-Reactive Protein 5.60 mg/dL (0.00-1.30) H 06/07/20 12:40 NT-Pro-B Natriuret Pep 296.7 pg/mL (0-900) 06/07/20 11:15 Total Protein 6.1 g/dL (6.3-8.2) L 06/07/20 11:15 Albumin 3.0 g/dL (3.9-5) L 06/07/20 11:15 Albumin/Globulin Ratio 1.0 % 06/07/20 11:15 Procalcitonin 0.40 ng/mL (<0.15) 06/07/20 12:40 Arterial Blood Glucose 179 mg/dL (65-95) H 06/07/20 11:35 Arterial Blood Ionized Calcium 4.9 mg/dL (4.6-5.3) 06/07/20 11:35 Coronavirus (PCR) Negative (Negative) 06/08/20 11:17 Microbiology: Microbiology 06/07/20 12:40 Peripheral/Venous Blood Culture - Preliminary NO GROWTH AFTER 24 HOURS 06/07/20 12:40 Peripheral/Venous Blood Culture - Preliminary NO GROWTH AFTER 24 HOURS Rosado/IV: Voiding Method Urinal IV Catheter Type [Right INT / Saline Lock Antecubital] IV Catheter Type [Right Hand] INT / Saline Lock Active Medications - Current Medications Current Medications: Generic Name Dose Route Start Last Admin Trade Name Freq PRN Reason Stop Dose Admin Acetaminophen 650 mg 06/08/20 08:20 Tylenol PO Q6H PRN Pain MILD(1-3)/Fever >100.5/VALLECILLO Hydrocodone Bitart/Acetaminophen 1 each 06/08/20 08:15 [place] 5/325 PO Q6HR PRN Pain, Moderate (4-6) Albuterol 2.5 mg 06/08/20 08:19 Proventil IH Q4HRT PRN Shortness Of Breath Albuterol/Ipratropium 1 ampul 06/08/20 08:30 06/09/20 08:26 Duoneb *Not For Prn Use* IH 1 ampul Q6HRT LARRY Administration Azithromycin 500 mg 06/09/20 10:00 06/09/20 09:00 Zithromax PO 06/11/20 12:00 500 mg QDAY LARRY Administration Budesonide 0.5 mg 06/08/20 20:00 06/09/20 08:25 Pulmicort IH 0.5 mg Q12HRT LARRY Administration Dextrose 50 ml 06/08/20 08:20 D50w (25gm) Syringe IV Q30MIN PRN Hypoglycemia Protocol Docusate Sodium 100 mg 06/08/20 10:00 06/09/20 09:00 Colace PO 100 mg BID LARRY Administration Fish Oil 1,000 mg 06/08/20 14:00 06/09/20 08:37 Fish Oil PO 1,000 mg TID LARRY Administration Ceftriaxone Sodium 2 gm in 100 mls @ 200 mls/hr 06/07/20 13:00 06/09/20 09:00 Rocephin/Ns 2 Gm/100 Ml IV 06/11/20 10:29 100 mls/hr Q24HR LARRY Administration Protocol Insulin Human Lispro 0 unit 06/09/20 16:30 06/09/20 12:06 Humalog SUB-Q 4 unit ACHS LARRY Administration Protocol Lorazepam 0.5 mg 06/07/20 17:01 Ativan IV Q1H PRN Anxiety Methylprednisolone Sodium Succinate 60 mg 06/08/20 09:00 06/09/20 08:37 Solu-Medrol IV 60 mg Q6H LARRY Administration Morphine Sulfate 2 mg 06/08/20 08:20 Morphine IV Q4H PRN Pain, Moderate (4-6) Naloxone HCl 0.1 mg 06/08/20 08:20 Naloxone IV Q2MIN PRN Res Rate </= 8 or 02 SAT < 92% Ondansetron HCl 4 mg 06/07/20 16:30 06/09/20 03:02 Zofran IV 4 mg Q8H PRN Administration Nausea And Vomiting Pravastatin Sodium 40 mg 06/08/20 22:00 06/08/20 21:53 Pravachol PO 40 mg QHS LARRY Administration Sodium Chloride 10 ml 06/08/20 10:00 06/09/20 09:00 Sodium Chloride Flush Syringe 10 Ml IV 10 ml BID LARRY Administration Sodium Chloride 10 ml 06/08/20 08:20 Sodium Chloride Flush Syringe 10 Ml IV PRN PRN LINE FLUSH Nutrition/Malnutrition Assess - Dietary Evaluation Nutrition/Malnutrition Findings: Nutrition Notes Start: 06/08/20 11:29 Freq: Status: Active Protocol: Document 06/08/20 11:30 MARGOT (Rec: 06/08/20 11:39 MARGOT [id number]) Nutrition Notes Need for Assessment generated from: MD Order,primary special education teacher Initial or Follow up Assessment Current Diagnosis COPD,Diabetes,Hypertension, Hyperlipidemia Other Pertinent Diagnosis Lung cancer, suspectied COVID Current Diet No diet Labs/Tests Reviewed Pertinent Medications Solu-Medrol Height 5 ft 10 in Weight 99.79 kg [place] Body Weight (kg) 75.45 BMI 31.5 Weight Status Obese Subjective/Other Information MD consult for poor oral intake, RN for skin risk. Wero score 21. Pt did not answer phone. Per RN, okay to order diet. Burn Absent Trauma Absent Current % PO Negligible Minimum of two criteria No physical signs of malnutrition #1 Nutrition Diagnosis Predicted suboptimal energy intake Etiology COPD As Evidenced by Signs and Symptoms pt on Bi-Pap Is patient on ventilator? No Is Patient Ambulatory and/or Out of Bed Yes REE-([facility]-ambulatory/OOB) [ 2371.395 [id number]] Calculation Used for Recommendations [facility] Additional Notes Pro: 70-88g (0.8-1g/kg AdjBW 87.6kg) Fluid: 1ml/kcal Nutrition Intervention Change Diet Order: Cardiac, Consistent CHO Goal #1 Meet at least 80% of protein and energy needs via PO intakes Follow-Up By: 06/10/20 Additional Comments FU for intakes
[2020-06-09] MEDS: PRAVASTATIN 40 MG TAB PO SCH (22:41)
[2020-06-09] MEDS ORDERED: guaiFENesin 200 MG TAB PO PRN (23:00)
[2020-06-09] MEDS ORDERED: guaiFENesin 100 MG/5 ML ORAL LIQD PO PRN (23:57)
[2020-06-10] MEDS: IPRATROPIUM/ALBUTEROL SULFATE 3 ML AMPUL.NEB IH SCH ×4 (01:52→20:45)
[2020-06-10] MEDS: methylPREDNISolone Sod Succinate 125 MG/2 ML INJ IV SCH ×4 (02:27→21:22)
[2020-06-10] MEDS: BUDESONIDE 0.5 MG/2 ML NEBU IH SCH ×2 (07:20→20:45)
[2020-06-10] MEDS: INSULIN LISPRO 100 UNIT/ML VIAL 3 mL SUB-Q SCH ×4 (08:57→22:58)
[2020-06-10] MEDS: cefTRIAXone/NS 2 GM/100 ML 2 GM/100 ML BAG IV SCH (09:46)
[2020-06-10] MEDS: DOCUSATE SODIUM 100 MG CAP PO SCH ×2 (09:47→22:58)
[2020-06-10] MEDS: BENZONATATE 100 MG CAP PO SCH ×3 (09:47→21:22)
[2020-06-10] MEDS: OMEGA-3 FATTY ACIDS/FISH OIL 1 GRAM CAP PO SCH ×3 (09:47→21:22)
[2020-06-10] MEDS: AZITHROMYCIN 250 MG TAB PO SCH (09:51)
--- NOTE | 2020-06-10 10:29 | Progress Note ---
Assessment and Plan Assessment and plan: 59 YO Male with Lung Cancer, Chronic Respiratory Failure on 4L Home Oxygen via [place], DM, HTN, Obesity,HLD, Nicotine Dependence presents to ED for evaluation. Patient is short of breath and is currently on noninvasive positive pressure ventilation at the time of my evaluation and is unable to give detailed history due to shortness of breath. Patient uses head-nodding to her knowledge symptoms. Patient reports that he had experienced shortness of breath over the past 1 day with persistent symptoms over the same timeframe. EMS notified and upon arrival the patient was found to be in distress and subsequently transported to [facility] for further care and evaluation of the aforementioned symptoms. Patient seen and evaluated in the emergency department. Lab and imaging studies reviewed. Chest x-ray reveals evidence of bilateral pneumonia. Patient found to have a pulse oximetry of 86% on room air which is consistent with acute hypoxemic respiratory failure. Patient subsequently placed on noninvasive positive pressure ventilation with mild improvement in symptoms. Patient initiated on coronavirus protocol in the emergency department prior to my evaluation. Patient admitted to [facility] due to increased risk of pulmonary decompensation. No reports of fever, chills, chest pain, productive cough, recent ill contacts, or known exposure to COVID-19. All medication listed at time of admission has been reconciled. Patient is sitting up in bed, using accessory muscles to breathe, tripoding. Patient is able to protect his airway at this time. CT CHEST: IMPRESSION: 1. Large soft tissue mass encasing right mainstem bronchus with associated bronchiectasis and central 6.4 cm cavitary lesion within right upper lobe. 2. Extensive mediastinal adenopathy 3. Multiple cavitary nodules and bilateral lower lobe nodular likely infectious/inflammatory parenchymal disease could represent superimposed TB. Respiratory precautions recommended. 4. No CT evidence for pulmonary embolus Discussed importance of compliance with the patient, he verbalized understanding 06/09. Patient seen and examined at bedside this morning. Patient is off BiPAP. He is saturating well on oxygen supplementation. On Solu-Medrol 60 mg every 6. Pulmonology recommendations appreciated. Patient can be transferred to the floors. 06/10. Has productive cough this morning. Denies any fever chills. On nasal cannula and saturating fine. Still on Solu-Medrol 60 every 6. Pulmonology fo llowing closely. (1) Acute hypoxemic respiratory failure Current Visit: Yes Status: Acute Plan to address problem: Continue supplemental oxygen and wean as tolerated Taper Solu-Medrol today. Continue bronchodilators Tessalon for cough Pulmonology recommendations appreciated (2) Lung cancer Current Visit: Yes Status: Acute Qualifiers: Lung location: unspecified part of lung Plan to address problem: Currently on Chemotherapy per patient Oncology follow-up at discharge (3) Suspected 2019-nCoV infection negative (4) Bilateral pneumonia Current Visit: Yes Status: Acute Plan to address problem: No clear evidence of sepsis on admission Sputum culture if able Continue azithromycin (5) Hypertension Current Visit: Yes Status: Acute Qualifiers: Hypertension type: essential hypertension Qualified Code(s): I10 - Essential (primary) hypertension Plan to address problem: Monitor blood pressure every shift, continue medical management. (6) Diabetes Current Visit: Yes Status: Acute Plan to address problem: Started on Lantus and lispro Monitor fingersticks closely as patient is on steroids (7) Nicotine dependence Current Visit: Yes Status: Acute Qualifiers: Nicotine product type: cigarettes Substance use status: in withdrawal Qualified Code(s): F17.213 - Nicotine dependence, cigarettes, with withdrawal Plan to address problem: Supportive care, smoking cessation counseling, behavior change counseling, +15 minutes. (8) DVT prophylaxis Current Visit: Yes Status: Acute Plan to address problem: SCD to bilateral lower extremities while in bed, prophylactic anticoagulation (9) Advance care planning Current Visit: Yes Status: Acute Plan to address problem: Disease education conducted, patient is full code, prognosis discussed, patient knowledges understanding and agreement with care plan, +30 minutes History Interval history: Patient seen and examined at bedside this morning. Complains of productive cough. Breathing slightly better. Still has wheeze. On [id number] to taper dose today Hospitalist Physical - Constitutional Vitals: Temp Pulse Resp BP Pulse Ox 97.6 F 88 20 134/85 96 06/10/20 04:29 06/10/20 07:22 06/10/20 07:22 06/10/20 04:29 06/10/20 07:22 General appearance: Present: no acute distress - EENT Eyes: Present: PERRL - Neck Neck: Present: supple - Respiratory Respiratory: bilateral: wheezing - Cardiovascular Heart Sounds: Present: S1 & S2 - Extremities Extremities: no ischemia - Abdominal General gastrointestinal: soft, non-tender, non-distended, normal bowel sounds - Psychiatric Psychiatric: appropriate mood/affect - Neurologic Neurologic: CNII-XII intact HEART Score - HEART Score Troponin: Troponin T < 0.010 ng/mL (0.00-0.029) 06/07/20 11:15 Results - Labs CBC & Chem 7: 06/09/20 05:25 06/09/20 05:25 Labs: Laboratory Last Values WBC 2.8 K/mm3 (4.5-11.0) L 06/09/20 05:25 RBC 3.82 M/mm3 (3.65-5.03) 06/09/20 05:25 Hgb 11.6 gm/dl (11.8-15.2) L 06/09/20 05:25 Hct 33.8 % (35.5-45.6) L D 06/09/20 05:25 MCV 89 fl (84-94) 06/09/20 05:25 MCH 31 pg (28-32) 06/09/20 05:25 MCHC 34 % (32-34) 06/09/20 05:25 RDW 15.2 % (13.2-15.2) 06/09/20 05:25 Plt Count 160 K/mm3 (140-440) 06/09/20 05:25 Lymph % (Auto) 7.8 % (13.4-35.0) L 06/09/20 05:25 Park % (Auto) 5.3 % (0.0-7.3) 06/09/20 05:25 Eos % (Auto) 0.0 % (0.0-4.3) 06/09/20 05:25 Baso % (Auto) 0.1 % (0.0-1.8) 06/09/20 05:25 Lymph # (Auto) 0.2 K/mm3 (1.2-5.4) L 06/09/20 05:25 Park # (Auto) 0.1 K/mm3 (0.0-0.8) 06/09/20 05:25 Eos # (Auto) 0.0 K/mm3 (0.0-0.4) 06/09/20 05:25 Baso # (Auto) 0.0 K/mm3 (0.0-0.1) 06/09/20 05:25 Add Manual Diff Complete 06/07/20 11:15 Total Counted 100 06/07/20 11:15 Seg Neutrophils % 86.8 % (40.0-70.0) H 06/09/20 05:25 Seg Neuts % (Manual) 97.0 % (40.0-70.0) H 06/07/20 11:15 Band Neutrophils % 0 % 06/07/20 11:15 Lymphocytes % (Manual) 2.0 % (13.4-35.0) L 06/07/20 11:15 Reactive Lymphs % (Man) 0 % 06/07/20 11:15 Monocytes % (Manual) 0 % (0.0-7.3) 06/07/20 11:15 Eosinophils % (Manual) 0 % (0.0-4.3) 06/07/20 11:15 Basophils % (Manual) 0 % (0.0-1.8) 06/07/20 11:15 Metamyelocytes % 1.0 % 06/07/20 11:15 Myelocytes % 0 % 06/07/20 11:15 Promyelocytes % 0 % 06/07/20 11:15 Blast Cells % 0 % 06/07/20 11:15 Nucleated RBC % Not Reportable 06/07/20 11:15 Seg Neutrophils # 2.4 K/mm3 (1.8-7.7) 06/09/20 05:25 Seg Neutrophils # Man 10.5 K/mm3 (1.8-7.7) H 06/07/20 11:15 Band Neutrophils # 0.0 K/mm3 06/07/20 11:15 Lymphocytes # (Manual) 0.2 K/mm3 (1.2-5.4) L 06/07/20 11:15 Abs React Lymphs (Man) 0.0 K/mm3 06/07/20 11:15 Monocytes # (Manual) 0.0 K/mm3 (0.0-0.8) 06/07/20 11:15 Eosinophils # (Manual) 0.0 K/mm3 (0.0-0.4) 06/07/20 11:15 Basophils # (Manual) 0.0 K/mm3 (0.0-0.1) 06/07/20 11:15 Metamyelocytes # 0.1 K/mm3 06/07/20 11:15 Myelocytes # 0.0 K/mm3 06/07/20 11:15 Promyelocytes # 0.0 K/mm3 06/07/20 11:15 Blast Cells # 0.0 K/mm3 06/07/20 11:15 WBC Morphology Not Reportable 06/07/20 11:15 WBC Morphology TNR 06/07/20 11:15 Hypersegmented Neuts Not Reportable 06/07/20 11:15 Hyposegmented Neuts Not Reportable 06/07/20 11:15 Hypogranular Neuts Not Reportable 06/07/20 11:15 Smudge Cells Not Reportable 06/07/20 11:15 Toxic Granulation Not Reportable 06/07/20 11:15 Toxic Vacuolation Not Reportable 06/07/20 11:15 Dohle Bodies Not Reportable 06/07/20 11:15 Pelger-Huet Anomaly Not Reportable 06/07/20 11:15 Cristy Rods Not Reportable 06/07/20 11:15 Platelet Estimate Consistent w auto 06/07/20 11:15 Clumped Platelets Not Reportable 06/07/20 11:15 Plt Clumps, EDTA Not Reportable 06/07/20 11:15 Large Platelets Not Reportable 06/07/20 11:15 Giant Platelets Not Reportable 06/07/20 11:15 Platelet Satelliting Not Reportable 06/07/20 11:15 Plt Morphology Comment Not Reportable 06/07/20 11:15 RBC Morphology Normal 06/07/20 11:15 Dimorphic RBCs Not Reportable 06/07/20 11:15 Polychromasia Not Reportable 06/07/20 11:15 Hypochromasia Not Reportable 06/07/20 11:15 Poikilocytosis Not Reportable 06/07/20 11:15 Anisocytosis Not Reportable 06/07/20 11:15 Microcytosis Not Reportable 06/07/20 11:15 Macrocytosis Not Reportable 06/07/20 11:15 Spherocytes Not Reportable 06/07/20 11:15 Pappenheimer Bodies Not Reportable 06/07/20 11:15 Sickle Cells Not Reportable 06/07/20 11:15 Target Cells Not Reportable 06/07/20 11:15 Tear Drop Cells Not Reportable 06/07/20 11:15 Ovalocytes Not Reportable 06/07/20 11:15 Helmet Cells Not Reportable 06/07/20 11:15 [place] Bodies Not Reportable 06/07/20 11:15 [place] Rings Not Reportable 06/07/20 11:15 Layo Cells Not Reportable 06/07/20 11:15 Bite Cells Not Reportable 06/07/20 11:15 Crenated Cell Not Reportable 06/07/20 11:15 Elliptocytes Not Reportable 06/07/20 11:15 Acanthocytes (Spur) Not Reportable 06/07/20 11:15 Rouleaux Not Reportable 06/07/20 11:15 Hemoglobin C Crystals Not Reportable 06/07/20 11:15 Schistocytes Not Reportable 06/07/20 11:15 Malaria parasites Not Reportable 06/07/20 11:15 Lizandro Bodies Not Reportable 06/07/20 11:15 Hem Pathologist Commnt No 06/07/20 11:15 PT 13.4 Sec. (12.2-14.9) 06/07/20 11:15 INR 1.00 (0.87-1.13) 06/07/20 11:15 D-Dimer 149.46 ng/mlDDU (0-234) 06/07/20 12:40 ABG pH 7.395 (7.320-7.450) 06/07/20 11:35 POC ABG pCO2 46.8 mmHg (32.0-48.0) 06/07/20 11:35 POC ABG pO2 220.9 mmHg (83-108) H 06/07/20 11:35 POC ABG HCO3 28.0 06/07/20 11:35 POC ABG Base Excess 2.5 06/07/20 11:35 ABG Hemoglobin 14.2 (12.0-17.5) 06/07/20 11:35 ABG Sodium 136.6 mmol/L (136.0-145.0) 06/07/20 11:35 ABG Potassium 4.0 mmol/L (3.40-4.50) 06/07/20 11:35 ABG Chloride 100.0 mmol/L (98-107) 06/07/20 11:35 ABG Glucose 179 mg/dL (65-95) H 06/07/20 11:35 FiO2 30.0 06/07/20 11:35 Sodium 137 mmol/L (137-145) 06/09/20 05:25 Potassium 4.5 mmol/L (3.6-5.0) 06/09/20 05:25 Chloride 96.6 mmol/L (98-107) L 06/09/20 05:25 Carbon Dioxide 30 mmol/L (22-30) 06/09/20 05:25 Anion Gap 15 mmol/L 06/09/20 05:25 BUN 15 mg/dL (9-20) 06/09/20 05:25 Creatinine 0.3 mg/dL (0.8-1.3) L 06/09/20 05:25 Estimated GFR > 60 ml/min 06/09/20 05:25 BUN/Creatinine Ratio 50 % 06/09/20 05:25 Glucose 187 mg/dL (75-100) H 06/09/20 05:25 POC Glucose 181 (70-105) H 06/10/20 07:29 Calcium 9.0 mg/dL (8.4-10.2) 06/09/20 05:25 Ferritin 1675.0 ng/mL (30.0-300.0) H 06/07/20 12:40 Total Bilirubin 0.50 mg/dL (0.1-1.2) 06/07/20 11:15 AST 14 units/L (5-40) 06/07/20 11:15 ALT 50 units/L (7-56) 06/07/20 11:15 Alkaline Phosphatase 86 units/L (35-129) 06/07/20 11:15 Lactate Dehydrogenase 300 units/L (91-180) H 06/07/20 12:40 Troponin T < 0.010 ng/mL (0.00-0.029) 06/07/20 11:15 C-Reactive Protein 5.60 mg/dL (0.00-1.30) H 06/07/20 12:40 NT-Pro-B Natriuret Pep 296.7 pg/mL (0-900) 06/07/20 11:15 Total Protein 6.1 g/dL (6.3-8.2) L 06/07/20 11:15 Albumin 3.0 g/dL (3.9-5) L 06/07/20 11:15 Albumin/Globulin Ratio 1.0 % 06/07/20 11:15 Procalcitonin 0.40 ng/mL (<0.15) 06/07/20 12:40 Arterial Blood Glucose 179 mg/dL (65-95) H 06/07/20 11:35 Arterial Blood Ionized Calcium 4.9 mg/dL (4.6-5.3) 06/07/20 11:35 Coronavirus (PCR) Negative (Negative) 06/08/20 11:17 Microbiology: Microbiology 06/07/20 12:40 Peripheral/Venous Blood Culture - Preliminary NO GROWTH AFTER 48 HOURS 06/07/20 12:40 Peripheral/Venous Blood Culture - Preliminary NO GROWTH AFTER 48 HOURS Rosado/IV: Voiding Method Urinal IV Catheter Type [Right INT / Saline Lock Antecubital] IV Catheter Type [Right Hand] INT / Saline Lock Active Medications - Current Medications Current Medications: Generic Name Dose Route Start Last Admin Trade Name Freq PRN Reason Stop Dose Admin Acetaminophen 650 mg 06/08/20 08:20 Tylenol PO Q6H PRN Pain MILD(1-3)/Fever >100.5/VALLECILLO Hydrocodone Bitart/Acetaminophen 1 each 06/08/20 08:15 06/09/20 22:49 [place] 5/325 PO 1 each Q6HR PRN Administration Pain, Moderate (4-6) Albuterol 2.5 mg 06/08/20 08:19 Proventil IH Q4HRT PRN Shortness Of Breath Albuterol/Ipratropium 1 ampul 06/08/20 08:30 06/10/20 07:20 Duoneb *Not For Prn Use* IH 1 ampul Q6HRT LARRY Administration Azithromycin 500 mg 06/09/20 10:00 06/10/20 09:51 Zithromax PO 06/11/20 12:00 500 mg QDAY LARRY Administration Benzonatate 100 mg 06/10/20 09:00 06/10/20 09:47 Tessalon Perles PO 100 mg Q8HR LARRY Administration Budesonide 0.5 mg 06/08/20 20:00 06/10/20 07:20 Pulmicort IH 0.5 mg Q12HRT LARRY Administration Dextrose 50 ml 06/08/20 08:20 D50w (25gm) Syringe IV Q30MIN PRN Hypoglycemia Protocol Docusate Sodium 100 mg 06/08/20 10:00 06/10/20 09:47 Colace PO 100 mg BID LARRY Administration Fish Oil 1,000 mg 06/08/20 14:00 06/10/20 09:47 Fish Oil PO 1,000 mg TID LARRY Administration Guaifenesin 200 mg 06/09/20 23:57 06/10/20 00:20 Robitussin PO 200 mg Q6H PRN Administration Cough Ceftriaxone Sodium 2 gm in 100 mls @ 200 mls/hr 06/07/20 13:00 06/10/20 09:46 Rocephin/Ns 2 Gm/100 Ml IV 06/11/20 10:29 100 mls/hr Q24HR LARRY Administration Protocol Insulin Human Lispro 0 unit 06/09/20 16:30 06/10/20 08:57 Humalog SUB-Q 3 unit ACHS LARRY Administration Protocol Lorazepam 0.5 mg 06/07/20 17:01 Ativan IV Q1H PRN Anxiety Methylprednisolone Sodium Succinate 60 mg 06/08/20 09:00 06/10/20 09:52 Solu-Medrol IV 60 mg Q6H LARRY Administration Morphine Sulfate 2 mg 06/08/20 08:20 Morphine IV Q4H PRN Pain, Moderate (4-6) Naloxone HCl 0.1 mg 06/08/20 08:20 Naloxone IV Q2MIN PRN Res Rate </= 8 or 02 SAT < 92% Ondansetron HCl 4 mg 06/07/20 16:30 06/09/20 03:02 Zofran IV 4 mg Q8H PRN Administration Nausea And Vomiting Pravastatin Sodium 40 mg 06/08/20 22:00 06/09/20 22:41 Pravachol PO 40 mg QHS LARRY Administration Sodium Chloride 10 ml 06/08/20 10:00 06/10/20 09:49 Sodium Chloride Flush Syringe 10 Ml IV 10 ml BID LARRY Administration Sodium Chloride 10 ml 06/08/20 08:20 Sodium Chloride Flush Syringe 10 Ml IV PRN PRN LINE FLUSH Nutrition/Malnutrition Assess - Dietary Evaluation Nutrition/Malnutrition Findings: Nutrition Notes Start: 06/08/20 11 :29 Freq: Status: Active Protocol: Document 06/08/20 11:30 (Rec: 06/08/20 11:39 [id number]) Nutrition Notes Need for Assessment generated from: MD Order,plant utility person Initial or Follow up Assessment Current Diagnosis COPD,Diabetes,Hypertension, Hyperlipidemia Other Pertinent Diagnosis Lung cancer, suspectied COVID Current Diet No diet Labs/Tests Reviewed Pertinent Medications Solu-Medrol Height 5 ft 10 in Weight 99.79 kg Pierce Body Weight (kg) 75.45 BMI 31.5 Weight Status Obese Subjective/Other Information MD consult for poor oral intake, RN for skin risk. Wero score 21. Pt did not answer phone. Per RN, okay to order diet. Burn Absent Trauma Absent Current % PO Negligible Minimum of two criteria No physical signs of malnutrition #1 Nutrition Diagnosis Predicted suboptimal energy intake Etiology COPD As Evidenced by Signs and Symptoms pt on Bi-Pap Is patient on ventilator? No Is Patient Ambulatory and/or Out of Bed Yes REE-([facility]-ambulatory/OOB) [ 2371.395 [id number]] Calculation Used for Recommendations [facility] Additional Notes Pro: 70-88g (0.8-1g/kg AdjBW 87.6kg) Fluid: 1ml/kcal Nutrition Intervention Change Diet Order: Cardiac, Consistent CHO Goal #1 Meet at least 80% of protein and energy needs via PO intakes Follow-Up By: 06/10/20 Additional Comments FU for intakes
--- NOTE | 2020-06-10 13:37 | Progress Note ---
Assessment and Plan 59 y/o male with dyspnea and prior history of lung CA, admitted with shortness of breath. Pulmonary consulted for COPD exacerbation. 1. Changed steroids to 20q8, preparing to transition to orals soon. 2. Ok with current neb treatments 3. If specific questions are asked about the malignancy, please reach out 4. Need to obtain records in regards to outside therapies. 5. Patient should be ready for discharge in the next 24-48 hours. Subjective Date of service: 06/10/20 Interval history: No acute events. Stable on nasal cannula. Still on high dose steroids. Objective Vital Signs - 12hr 06/10/20 06/10/20 06/10/20 01:52 04:29 07:22 Temperature 97.6 F Pulse Rate 86 Pulse Rate [ 76 88 Bilateral Throughout] Respiratory 20 Rate Respiratory 20 20 Rate [Bilateral Throughout] Blood Pressure 134/85 O2 Sat by Pulse 98 96 Oximetry 06/10/20 06/10/20 08:00 13:25 Temperature Pulse Rate Pulse Rate [ 89 Bilateral Throughout] Respiratory 18 Rate Respiratory 20 Rate [Bilateral Throughout] Blood Pressure O2 Sat by Pulse Oximetry CBC and BMP: 06/09/20 05:25 06/09/20 05:25 ABG, PT/INR, D-dimer: ABG ABG pH 7.395 (7.320-7.450) 06/07/20 11:35 POC ABG pCO2 46.8 mmHg (32.0-48.0) 06/07/20 11:35 POC ABG pO2 220.9 mmHg (83-108) H 06/07/20 11:35 POC ABG HCO3 28.0 06/07/20 11:35 PT/INR, D-dimer PT 13.4 Sec. (12.2-14.9) 06/07/20 11:15 INR 1.00 (0.87-1.13) 06/07/20 11:15 D-Dimer 149.46 ng/mlDDU (0-234) 06/07/20 12:40 Abnormal lab findings: Abnormal Labs 06/07/20 06/07/20 06/07/20 11:15 11:15 11:35 WBC Hgb Hct Lymph % (Auto) Lymph # (Auto) Seg Neutrophils % Seg Neuts % (Manual) 97.0 H Lymphocytes % (Manual) 2.0 L Seg Neutrophils # Man 10.5 H Lymphocytes # (Manual) 0.2 L POC ABG pO2 220.9 H ABG Glucose 179 H Chloride Creatinine 0.4 L Glucose 160 H POC Glucose Ferritin Lactate Dehydrogenase C-Reactive Protein Total Protein 6.1 L Albumin 3.0 L Arterial Blood Glucose 179 H 06/07/20 06/07/20 06/08/20 12:40 12:40 13:32 WBC Hgb Hct Lymph % (Auto) Lymph # (Auto) Seg Neutrophils % Seg Neuts % (Manual) Lymphocytes % (Manual) Seg Neutrophils # Man Lymphocytes # (Manual) POC ABG pO2 ABG Glucose Chloride Creatinine Glucose 202 H POC Glucose 179 H Ferritin 1675.0 H Lactate Dehydrogenase 300 H C-Reactive Protein 5.60 H Total Protein Albumin Arterial Blood Glucose 06/08/20 06/08/20 06/09/20 17:12 23:22 05:25 WBC 2.8 L Hgb 11.6 L Hct 33.8 L D Lymph % (Auto) 7.8 L Lymph # (Auto) 0.2 L Seg Neutrophils % 86.8 H Seg Neuts % (Manual) Lymphocytes % (Manual) Seg Neutrophils # Man Lymphocytes # (Manual) POC ABG pO2 ABG Glucose Chloride Creatinine Glucose POC Glucose 200 H 209 H Ferritin Lactate Dehydrogenase C-Reactive Protein Total Protein Albumin Arterial Blood Glucose 06/09/20 06/09/20 06/09/20 05:25 07:48 11:45 WBC Hgb Hct Lymph % (Auto) Lymph # (Auto) Seg Neutrophils % Seg Neuts % (Manual) Lymphocytes % (Manual) Seg Neutrophils # Man Lymphocytes # (Manual) POC ABG pO2 ABG Glucose Chloride 96.6 L Creatinine 0.3 L Glucose 187 H POC Glucose 180 H 206 H Ferritin Lactate Dehydrogenase C-Reactive Protein Total Protein Albumin Arterial Blood Glucose 06/09/20 06/09/20 06/10/20 17:13 22:03 07:29 WBC Hgb Hct Lymph % (Auto) Lymph # (Auto) Seg Neutrophils % Seg Neuts % (Manual) Lymphocytes % (Manual) Seg Neutrophils # Man Lymphocytes # (Manual) POC ABG pO2 ABG Glucose Chloride Creatinine Glucose POC Glucose 131 H 205 H 181 H Ferritin Lactate Dehydrogenase C-Reactive Protein Total Protein Albumin Arterial Blood Glucose 06/10/20 12:10 WBC Hgb Hct Lymph % (Auto) Lymph # (Auto) Seg Neutrophils % Seg Neuts % (Manual) Lymphocytes % (Manual) Seg Neutrophils # Man Lymphocytes # (Manual) POC ABG pO2 ABG Glucose Chloride Creatinine Glucose POC Glucose 209 H Ferritin Lactate Dehydrogenase C-Reactive Protein Total Protein Albumin Arterial Blood Glucose
[2020-06-10] MEDS: PRAVASTATIN 40 MG TAB PO SCH (21:22)
[2020-06-11] MEDS: IPRATROPIUM/ALBUTEROL SULFATE 3 ML AMPUL.NEB IH SCH ×3 (02:30→14:18)
[2020-06-11] MEDS: BENZONATATE 100 MG CAP PO SCH ×2 (05:36→15:35)
[2020-06-11] MEDS: methylPREDNISolone Sod Succinate 125 MG/2 ML INJ IV SCH ×2 (05:36→15:34)
[2020-06-11] MEDS: BUDESONIDE 0.5 MG/2 ML NEBU IH SCH (08:13)
[2020-06-11] MEDS: INSULIN LISPRO 100 UNIT/ML VIAL 3 mL SUB-Q SCH ×2 (08:47→12:24)
[2020-06-11] MEDS: cefTRIAXone/NS 2 GM/100 ML 2 GM/100 ML BAG IV SCH (11:17)
[2020-06-11] MEDS: AZITHROMYCIN 250 MG TAB PO SCH (11:18)
[2020-06-11] MEDS: OMEGA-3 FATTY ACIDS/FISH OIL 1 GRAM CAP PO SCH ×2 (11:18→15:35)
[2020-06-11] MEDS: DOCUSATE SODIUM 100 MG CAP PO SCH (11:18)
--- NOTE | 2020-06-11 12:43 | Discharge Summary ---
Providers - Providers Date of Admission: 06/07/20 13:03 Date of discharge: 06/11/20 Attending physician: ONOFRE MENDEZ 06/08/20 08:16 Consult to Physician [CONS] Routine Comment: Consulting Provider: AYLA VARGAS Physician Instructions: Reason For Exam: COPD EXACERBATION 06/08/20 08:20 Consult to Dietitian/Nutrition [CONS] Routine Physician Instructions: Reason For Exam: Reason for Consult: Poor oral intake 06/10/20 12:39 Consult to Wound/ET Nurse [CONS] Routine Reason For Exam: wound eval Primary care physician: [employer] Hospitalization Reason for admission: Shortness of breath Condition: Stable Hospital course: 59 YO Male with Lung Cancer, Chronic Respiratory Failure on 4L Home Oxygen via [place], DM, HTN, Obesity,HLD, Nicotine Dependence presents to ED for evaluation. Patient is short of breath and is currently on noninvasive positive pressure ventilation at the time of my evaluation and is unable to give detailed history due to shortness of breath. Patient uses head-nodding to her knowledge symptoms. Patient reports that he had experienced shortness of breath over the past 1 day with persistent symptoms over the same timeframe. EMS notified and upon arrival the patient was found to be in distress and subsequently transported to [facility] for further care and evaluation of the aforementioned symptoms. Patient seen and evaluated in the emergency department. Lab and imaging studies reviewed. Chest x-ray reveals evidence of bilateral pneumonia. Patient found to have a pulse oximetry of 86% on room air which is consistent with acute hypoxemic respiratory failure. Patient subsequently placed on noninvasive positive pressure ventilation with mild improvement in symptoms. Patient initiated on coronavirus protocol in the emergency department prior to my evaluation. Patient admitted to [facility] due to increased risk of pulmonary decompensation. No reports of fever, chills, chest pain, productive cough, recent ill contacts, or known exposure to COVID-19. All medication listed at time of admission has been reconciled. Patient is sitting up in bed, using a ccessory muscles to breathe, tripoding. Patient is able to protect his airway at this time. CT CHEST: IMPRESSION: 1. Large soft tissue mass encasing right mainstem bronchus with associated bronchiectasis and central 6.4 cm cavitary lesion within right upper lobe. 2. Extensive mediastinal adenopathy 3. Multiple cavitary nodules and bilateral lower lobe nodular likely infectious/inflammatory parenchymal disease could represent superimposed TB. Respiratory precautions recommended. 4. No CT evidence for pulmonary embolus Discussed importance of compliance with the patient, he verbalized understanding 06/09. Patient seen and examined at bedside this morning. Patient is off BiPAP. He is saturating well on oxygen supplementation. On Solu-Medrol 60 mg every 6. Pulmonology recommendations appreciated. Patient can be transferred to the floors. 06/10. Has productive cough this morning. Denies any fever chills. On nasal cannula and saturating fine. Still on Solu-Medrol 60 every 6. Pulmonology following closely. 06/11. He is doing well on current steroid dose. Will taper off steroids and discharge him home. He will continue his oxygen at home and follow up with his pulmonary doctor in the office Disposition: [id number] TO HOME OR SELFCARE - Discharge Diagnoses (1) Acute and chronic respiratory failure with hypoxia Status: Acute (2) COPD exacerbation Status: Acute Core Measure Documentation - Palliative Care Palliative Care/ Comfort Measures: Not Applicable - Core Measures Any of the following diagnoses?: none Exam - Constitutional Vitals: Temp Pulse Resp BP Pulse Ox 97.3 F L 79 20 121/72 97 06/11/20 05:36 06/11/20 08:10 06/11/20 08:10 06/11/20 05:36 06/11/20 08:16 General appearance: Present: no acute distress, well-nourished - EENT Eyes: Present: PERRL ENT: hearing intact, clear oral mucosa - Neck Neck: Present: supple, normal ROM - Respiratory Respiratory effort: normal Respiratory: bilateral: wheezing (improved) - Cardiovascular Heart Sounds: Present: S1 & S2. Absent: rub, click - Extremities Extremities: pulses symmetrical, No edema Peripheral Pulses: within normal limits - Abdominal General gastrointestinal: Present: soft, non-tender, non-distended, normal bowel sounds Male genitourinary: Present: normal - Integumentary Integumentary: Present: clear, warm, dry - Musculoskeletal Musculoskeletal: gait normal, strength equal bilaterally - Psychiatric Psychiatric: appropriate mood/affect, intact judgment & insight - Neurologic Neurologic: CNII-XII intact, moves all extremities Plan Activity: no restrictions Additional Instructions: Continue steroids as ordered. Follow up with pcp and pulmonology in the office Follow up with: MILAN AMEZCUA MD [Primary Care Provider] - 3-5 Days Prescriptions: Fluticasone/Salmeterol [Advair Diskus 250-50 mcg] 1 puff IH BID #1 disk.w.dev predniSONE [Deltasone] 40 mg PO QDAY #10 tab
--- NOTE | 2020-06-11 12:56 | Progress Note ---
Assessment and Plan 59 y/o male with dyspnea and prior history of lung CA, admitted with shortness of breath. Pulmonary consulted for COPD exacerbation. 1. No objection to discharge. 2. Resume home COPD regimen 3. Follow up with established sole painter Subjective Date of service: 06/11/20 Interval history: Patient being discharged today. Objective Vital Signs - 12hr 06/11/20 06/11/20 06/11/20 02:31 05:36 08:10 Temperature 97.3 F L Pulse Rate 85 Pulse Rate [ 88 79 Bilateral Throughout] Respiratory 18 Rate Respiratory 20 20 Rate [Bilateral Throughout] Blood Pressure 121/72 O2 Sat by Pulse 95 Oximetry 06/11/20 08:16 Temperature Pulse Rate Pulse Rate [ Bilateral Throughout] Respiratory Rate Respiratory Rate [Bilateral Throughout] Blood Pressure O2 Sat by Pulse 97 Oximetry CBC and BMP: 06/09/20 05:25 06/09/20 05:25 ABG, PT/INR, D-dimer: ABG ABG pH 7.395 (7.320-7.450) 06/07/20 11:35 POC ABG pCO2 46.8 mmHg (32.0-48.0) 06/07/20 11:35 POC ABG pO2 220.9 mmHg (83-108) H 06/07/20 11:35 POC ABG HCO3 28.0 06/07/20 11:35 PT/INR, D-dimer PT 13.4 Sec. (12.2-14.9) 06/07/20 11:15 INR 1.00 (0.87-1.13) 06/07/20 11:15 D-Dimer 149.46 ng/mlDDU (0-234) 06/07/20 12:40 Abnormal lab findings: Abnormal Labs 06/07/20 06/07/20 06/07/20 11:15 11:15 11:35 WBC Hgb Hct Lymph % (Auto) Lymph # (Auto) Seg Neutrophils % Seg Neuts % (Manual) 97.0 H Lymphocytes % (Manual) 2.0 L Seg Neutrophils # Man 10.5 H Lymphocytes # (Manual) 0.2 L POC ABG pO2 220.9 H ABG Glucose 179 H Chloride Creatinine 0.4 L Glucose 160 H POC Glucose Ferritin Lactate Dehydrogenase C-Reactive Protein Total Protein 6.1 L Albumin 3.0 L Arterial Blood Glucose 179 H 06/07/20 06/07/20 06/08/20 12:40 12:40 13:32 WBC Hgb Hct Lymph % (Auto) Lymph # (Auto) Seg Neutrophils % Seg Neuts % (Manual) Lymphocytes % (Manual) Seg Neutrophils # Man Lymphocytes # (Manual) POC ABG pO2 ABG Glucose Chloride Creatinine Glucose 202 H POC Glucose 179 H Ferritin 1675.0 H Lactate Dehydrogenase 300 H C-Reactive Protein 5.60 H Total Protein Albumin Arterial Blood Glucose 06/08/20 06/08/20 06/09/20 17:12 23:22 05:25 WBC 2.8 L Hgb 11.6 L Hct 33.8 L D Lymph % (Auto) 7.8 L Lymph # (Auto) 0.2 L Seg Neutrophils % 86.8 H Seg Neuts % (Manual) Lymphocytes % (Manual) Seg Neutrophils # Man Lymphocytes # (Manual) POC ABG pO2 ABG Glucose Chloride Creatinine Glucose POC Glucose 200 H 209 H Ferritin Lactate Dehydrogenase C-Reactive Protein Total Protein Albumin Arterial Blood Glucose 06/09/20 06/09/20 06/09/20 05:25 07:48 11:45 WBC Hgb Hct Lymph % (Auto) Lymph # (Auto) Seg Neutrophils % Seg Neuts % (Manual) Lymphocytes % (Manual) Seg Neutrophils # Man Lymphocytes # (Manual) POC ABG pO2 ABG Glucose Chloride 96.6 L Creatinine 0.3 L Glucose 187 H POC Glucose 180 H 206 H Ferritin Lactate Dehydrogenase C-Reactive Protein Total Protein Albumin Arterial Blood Glucose 06/09/20 06/09/20 06/10/20 17:13 22:03 07:29 WBC Hgb Hct Lymph % (Auto) Lymph # (Auto) Seg Neutrophils % Seg Neuts % (Manual) Lymphocytes % (Manual) Seg Neutrophils # Man Lymphocytes # (Manual) POC ABG pO2 ABG Glucose Chloride Creatinine Glucose POC Glucose 131 H 205 H 181 H Ferritin Lactate Dehydrogenase C-Reactive Protein Total Protein Albumin Arterial Blood Glucose 06/10/20 06/10/20 06/10/20 12:10 16:16 23:03 WBC Hgb Hct Lymph % (Auto) Lymph # (Auto) Seg Neutrophils % Seg Neuts % (Manual) Lymphocytes % (Manual) Seg Neutrophils # Man Lymphocytes # (Manual) POC ABG pO2 ABG Glucose Chloride Creatinine Glucose POC Glucose 209 H 199 H 156 H Ferritin Lactate Dehydrogenase C-Reactive Protein Total Protein Albumin Arterial Blood Glucose 06/11/20 06/11/20 08:09 12:20 WBC Hgb Hct Lymph % (Auto) Lymph # (Auto) Seg Neutrophils % Seg Neuts % (Manual) Lymphocytes % (Manual) Seg Neutrophils # Man Lymphocytes # (Manual) POC ABG pO2 ABG Glucose Chloride Creatinine Glucose POC Glucose 147 H 266 H Ferritin Lactate Dehydrogenase C-Reactive Protein Total Protein Albumin Arterial Blood Glucose
[2020-06-11] MEDS ORDERED: AQUAPHOR OINTMENT TP SCH (14:00)
[2020-06-11 15:34] VITALS: BP 113/67
== END 2020-06-11 17:44 | disposition home or self-care (01) | DRG 193 ==
LOC: ED 10:47 → IMCU 13:03 → 3A 06-09 13:27
PROVIDERS: ADMIT Internal Medicine; ATTEND Internal Medicine
PROC: 4A033R1 Measurement of Arterial Saturation, Peripheral, Percutaneous Approach (ICD-10-PCS; principal; 2020-06-07)
PROC: 5A09357 Assistance with Respiratory Ventilation, Less than 24 Consecutive Hours, Continuous Positive Airway Pressure (ICD-10-PCS; 2020-06-07)
DX: J18.9 Pneumonia, unspecified organism (principal); J96.21 Acute and chronic respiratory failure with hypoxia; J44.1 Chronic obstructive pulmonary disease with (acute) exacerbation; C34.90 Malignant neoplasm of unspecified part of unspecified bronchus or lung; F17.213 Nicotine dependence, cigarettes, with withdrawal; J44.0 Chronic obstructive pulmonary disease with (acute) lower respiratory infection; I10 Essential (primary) hypertension; E11.9 Type 2 diabetes mellitus without complications; E66.9 Obesity, unspecified; Z20.828 Contact with and (suspected) exposure to other viral communicable diseases; Z85.118 Personal history of other malignant neoplasm of bronchus and lung; Z99.81 Dependence on supplemental oxygen; Z71.6 Tobacco abuse counseling; Z79.84 Long term (current) use of oral hypoglycemic drugs; Z79.899 Other long term (current) drug therapy; Z68.29 Body mass index [BMI] 29.0-29.9, adult
CPT/HCPCS: 36415; 71045; 71275; 80048; 80053; 82728; 82805; 82947; 82962; 83615; 83880; 84145; 84484; 85007; 85025; 85379; 85610; 86140; 87040; 87070; 87076; 87186; 87205; 93005; 94640; 94644; 94760; 96374; 96375; 99406; G0378; A9270-GY; J0456; J0696; J1100; J1815; J2405; J2930; J3475; J7050; Q9967; U0003-CS